=== PATIENT | female | born 1985 | race Caucasian/White ===

== ENCOUNTER 2017-06-23 18:54 | Emergency (ER) | payer MEDICAID, OTHER ==
[~2017-06-23] VITALS: Ht 172.7 cm; Wt 68.0 kg
[~2017-06-23 18:54] MED LIST: ACHD5005 PO; DOXY100C2 PO; METR500T PO; NAPR-243 PO
--- OUTSIDE RECORDS SUMMARY | 2017-06-23 19:00 | XMS REPORT ---
Author Author Christin Ramirez Organization [facility] Address [address] [place], [place] [address] Care Team Providers Care Machine Shop Supervisor Name Role Phone Christin Ramirez PCP Christin Ramirez PreferredProvider Allergies and Adverse Reactions Name Reaction Notes NO KNOWN DRUG ALLERGIES Plan of Treatment Planned Activity Comments Planned Date Planned Time Plan/Goal Complete blood count (CBC) with differential count 01/10/2017 12:00 AM Comprehensive metabolic panel 01/10/2017 12:00 AM Medications Active Name Start Date Estimated Completion Date SIG Comments aspirin 81 mg oral tablet,delayed release (DR/EC) take 1 tablet (81 mg) by oral route once daily Flovent HFA 220 mcg/actuation inhalation HFA aerosol inhaler inhale 2 puffs (440 mcg) by inhalation route 2 times per day Lopressor 100 mg oral tablet take 1 tablet (100 mg) by oral route once daily with a meal ProAir HFA 90 mcg/actuation inhalation HFA aerosol inhaler inhale 2 puffs (180 mcg) by inhalation route every 6 hours as needed albuterol sulfate 2.5 mg /3 mL (0.083 %) inhalation solution for nebulization 01/24/2017 04/24/2017 inhale 3 milliliters (2.5 mg) by nebulization route 3 times per day for 30 days Remeron 15 mg oral tablet 03/14/2017 09/10/2017 take 1 tablet (15 mg) by oral route once daily before bedtime for 30 days Wellbutrin XL 150 mg oral tablet extended release 24 hr 03/14/2017 09/10/2017 take 1 tablet (150 mg) by oral route once daily for 30 days tramadol 50 mg oral tablet 03/14/2017 04/13/2017 take 1 tablet (50 mg) by oral route every 6 hours as needed for 30 days Name Start Date Expiration Date SIG Comments nebulizer machine + supplies one kit 01/24/2017 02/23/2017 Use TID per insert instructions warfarin 5 mg oral tablet 01/24/2017 02/23/2017 take 1 tablet (5 mg) by oral route once daily for 30 days Discontinued Name Start Date Discontinued Date SIG Comments Vitamin Oral Tablet 01/10/2017 take 1 tablet by oral route once daily Roxicodone 5 mg oral tablet 02/12/2017 take 1 tablet (5 mg) by oral route every 4 hours as needed pantoprazole 40 mg oral tablet,delayed release (DR/EC) 02/12/2017 take 1 tablet (40 mg) by oral route once daily senna 8.8 mg/5 mL oral syrup 02/12/2017 take 20 milliliters by oral route 2 times a day Problem List Description Status Onset Asthma Active Vital Signs Date Time BP-Sys(mm[Hg] BP-Mayra(mm[Hg]) HR(bpm) RR(rpm) Temp WT HT HC BMI BSA BMI Percentile O2 Sat(%) 03/14/2017 11:06:00 AM 98 mmHg 76 mmHg 108 bpm 16 rpm 97.7 F 134.25 lbs 68 in 20.41 kg/m2 1.71 m2 98 % 02/12/2017 11:04:00 AM 98 mmHg 70 mmHg 77 bpm 18 rpm 98.1 F 128.5 lbs 68 in 19.5382 kg/m 1.6723 m 99 % 02/03/2017 2:55:00 PM 118 mmHg 74 mmHg 114 bpm 18 rpm 98.5 F 129.5 lbs 68 in 19.69 kg/m2 1.68 m2 99 % 01/24/2017 11:49:00 AM 122 mmHg 76 mmHg 85 bpm 18 rpm 97.7 F 127 lbs 68 in 19.3101 kg/m 1.6625 m 96 % 01/10/2017 11:10:00 AM 98 mmHg 78 mmHg 99 bpm 18 rpm 98.1 F 127.5 lbs 68 in 19.39 kg/m2 1.67 m2 95 % 12/12/2011 10:27:00 AM 132 mmHg 82 mmHg 82 bpm 137 lbs 68 in 20.8306 kg/m 1.7267 m 12/05/2011 1:50:00 PM 128 mmHg 89 mmHg 99 bpm 132 lbs 68 in 20.07 kg/m2 1.69 m2 11/21/2011 1:17:00 PM 128 mmHg 75 mmHg 65 bpm 98.1 F 130.25 lbs 11/14/2011 1:35:00 PM 123 mmHg 75 mmHg 82 bpm 97.1 F 130.25 lbs 68 in 19.80 kg/m2 1.68 m2 11/07/2011 1:22:00 PM 123 mmHg 70 mmHg 92 bpm 132 lbs 68 in 20.0703 kg/m 1.6949 m 08/22/2011 9:37:00 AM 96 mmHg 53 mmHg 70 bpm 98.1 F 123.5 lbs 68 in 18.78 kg/m2 1.64 m2 08/05/2011 2:25:00 PM 112 mmHg 64 mmHg 64 bpm 18 rpm 97.4 F 120.5 lbs 68 in 18.3218 kg/m 1.6194 m Social History Name Description Comments Tobacco Former smoker Alcohol Use - Occasional History of Procedures Date Ordered Description Order Status 08/05/2011 12:00 AM CHORIONIC GONADOTROPIN ASSAY Reviewed 08/22/2011 12:00 AM CYTOPATH C/V THIN LAYER Reviewed 08/22/2011 12:00 AM SPECIMEN HANDLING OFFICE-LAB Reviewed 08/22/2011 12:00 AM N.GONORRHOEAE DNA AMP PROB Reviewed 08/22/2011 12:00 AM CHLAMYDIA CULTURE Reviewed 08/22/2011 12:00 AM OBSTETRIC PANEL Reviewed 08/22/2011 12:00 AM HIV-1ANTIBODY Reviewed 08/22/2011 12:00 AM URINALYSIS AUTO W/SCOPE Reviewed 08/22/2011 12:00 AM TRANSVAGINAL US OBSTETRIC Reviewed 10/31/2011 12:00 AM ASSAY OF PROGESTERONE 17-D Reviewed 11/07/2011 12:00 AM THER/PROPH/DIAG INJ SC/IM Reviewed 11/07/2011 12:00 AM ASSAY OF PROGESTERONE 17-D Reviewed 11/14/2011 12:00 AM THER/PROPH/DIAG INJ SC/IM Reviewed 11/14/2011 12:00 AM ASSAY OF PROGESTERONE 17-D Reviewed 11/21/2011 12:00 AM THER/PROPH/DIAG INJ SC/IM Reviewed 11/21/2011 12:00 AM ASSAY OF PROGESTERONE 17-D Reviewed 12/12/2011 12:00 AM THER/PROPH/DIAG INJ SC/IM Reviewed 12/12/2011 12:00 AM ASSAY OF PROGESTERONE 17-D Reviewed 12/05/2011 12:00 AM THER/PROPH/DIAG INJ SC/IM Reviewed 12/05/2011 12:00 AM ASSAY OF PROGESTERONE 17-D Reviewed 02/03/2017 12:00 AM CHEST X-RAY 2VW FRONTAL&LATL Returned 02/12/2017 12:00 AM COMPLETE CBC W/AUTO DIFF WBC Returned 02/12/2017 12:00 AM COMPREHEN METABOLIC PANEL Returned 02/12/2017 12:00 AM ASSAY OF LIPASE Returned 02/12/2017 12:00 AM C-REACTIVE PROTEIN Returned 02/12/2017 12:00 AM RBC SED RATE AUTOMATED Returned 02/12/2017 12:00 AM ASSAY OF CK (CPK) Returned 02/12/2017 12:00 AM ASSAY OF TROPONIN QUANT Returned 02/12/2017 12:00 AM TTE W/DOPPLER COMPLETE Returned 02/12/2017 12:00 AM US EXAM ABDO BACK WALL RENE Returned 02/12/2017 12:00 AM ASSAY OF NATRIURETIC PEPTIDE Returned 01/24/2017 12:00 AM CHEST X-RAY 2VW FRONTAL&LATL Returned 01/24/2017 12:00 AM COMPLETE CBC W/AUTO DIFF WBC Reviewed 01/24/2017 12:00 AM C-REACTIVE PROTEIN Reviewed 01/24/2017 12:00 AM BLOOD CULTURE FOR BACTERIA Reviewed 01/24/2017 12:00 AM COMPREHEN METABOLIC PANEL Reviewed Results Summary Date and Description Results 08/05/2011 3:02 PM TEST POSITIVE 08/22/2011 11:32 AM WBC 10.0 RBC 4.71 HGB 14.10 g/dLHCT 42.80 %MCV 91.0 fLMCH 29.90 pgMCHC 32.90 g/dLRDW SD 48 RDW CV 14.40 %MPV 9.60 fLPLT 349 NRBC# 0.00 NRBC% 0.0 %NEUT 64.30 %%LYMP 23.60 %%MONO 9.10 %%EOS 2.30 %%BASO 0.70 %#NEUT 6.45 #LYMP 2.37 #MONO 0.91 #EOS 0.23 #BASO 0.07 MANUAL DIFF NOT IND COLOR YELLOW APPEARANCE CLOUDY SPEC GRAV 1.020 pH 7.5 PROTEIN NEGATIVE GLUCOSE NEGATIVE KETONE NEGATIVE BILIRUBIN NEGATIVE BLOOD NEGATIVE NITRITE NEGATIVE LEUK SCREEN NEGATIVE WBC/HPF NEGATIVE RBC/HPF NEGATIVE CASTS/LPF NEGATIVE CRYSTALS 2++ AMORPHOUS MUCOUS THRDS NEGATIVE BACTERIA FEW EPITH CELLS FEW SQUAMOUS TRICHOMONAS NEGATIVE YEAST NEGATIVE CULT ORDERED YES 01/24/2017 1:20 PM WBC 6.6 RBC 3.94 HGB 12.0 g/dLHCT 38.0 %MCV 96.0 fLMCH 30.50 pgMCHC 31.60 g/dLRDW SD 54 RDW CV 15.0 %MPV 8.50 fLPLT 373 NRBC# 0.00 NRBC % 0.0 %NEUT 65.50 %%LYMP 20.20 %%MONO 11.30 %%EOS 2.0 %%BASO 0.80 %#NEUT 4.35 # LYMP 1.34 #MONO 0.75 #EOS 0.13 #BASO 0.05 MANUAL DIFF NOT IND GLUCOSE 99.0 mg/ dLSODIUM 137.0 mmol/LPOTASSIUM 4.40 mmol/LCHLORIDE 101.0 mmol/LCO2 28.0 mmol/ LBUN 11.0 mg/dLCREATININE 0.70 mg/dLSGOT/AST 17.0 IU/LSGPT/ALT 17.0 IU/LALK PHOS 79.0 IU/LTOTAL PROTEIN 8.40 g/dLALBUMIN 3.80 g/dLTOTAL BILI 0.70 mg/ dLCALCIUM 10.20 mg/dLAGE 31 GFR NonAA 98 GFR AA 119 eGFR >60 mL/min/1.73meGFR AA* >60 C REACTIVE PROTEIN 17.0 mg/L History Of Immunizations Not available. History of Past Illness Name Date of Onset Comments Asthma Amenorrhea Aug 05 2011 2:27PM test confirmed positive Aug 22 2011 9:39AM Personal history of other diseases; other genital system and obstetric disorders; personal history of pre-term labor Oct 31 2011 3:20PM Personal history of other diseases; other genital system and obstetric disorders; personal history of pre-term labor Nov 07 2011 1:42PM Personal history of other diseases; other genital system and obstetric disorders; personal history of pre-term labor Nov 14 2011 1:45PM Personal history of other diseases; other genital system and obstetric disorders; personal history of pre-term labor Nov 21 2011 1:27PM Personal history of other diseases; other genital system and obstetric disorders; personal history of pre-term labor Dec 12 2011 10:39AM Personal history of other diseases; other genital system and obstetric disorders; personal history of pre-term labor Dec 05 2011 2:04PM Heart Failure, Systolic Jan 10 2017 11:13AM Aortic valve replaced Jan 10 2017 11:13AM Nutritional deficiency Jan 10 2017 11:13AM Vocal cord paralysis Jan 10 2017 11:13AM Dysphagia Jan 10 2017 11:13AM 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 Jan 10 2017 11:13AM Pressure ulcer of unspecified site, unspecified stage Jan 10 2017 11:13AM Heart valve replaced Jan 24 2017 11:51AM Mechanical heart valve present Jan 24 2017 11:51AM Cough Jan 24 2017 11:51AM Skin infection Jan 24 2017 11:51AM Pneumonia Jan 24 2017 2:51PM Cough Feb 03 2017 2:58PM Chest pain Feb 12 2017 11:08AM Syncope Feb 12 2017 11:08AM Nicotine Addiction Mar 14 2017 11:17AM Anxiety Mar 14 2017 11:17AM Anorexia Mar 14 2017 11:17AM Payers Insurance Name Company Name Plan Name Plan Number Policy Number Policy Group Number Start Date [employer] [place] [employer] [place] [id number] N/A [employer] [place] [employer] [place] [id number] N/A [employer] - CMFHP Cov[employer] -CMFHP [id number] N/A [employer] - RHC - CMFHP [employer] - RHC - CMFHP [id number] N/A History of Encounters Visit Date Visit Type Provider 03/14/2017 Office visit Christin Ramirez MD 02/12/2017 Office visit Christin Ramirez MD 02/09/2017 [facility] Wing Samaniego MD 02/08/2017 [facility] Wing Samaniego MD 02/03/2017 Office visit Christin Ramirez MD 01/24/2017 [facility] Matthias Thomas MD 01/24/2017 Office visit Etta Lowe AGRICULTURAL EDUCATION PROFESSOR 01/10/2017 Office visit Christin Ramirez MD 01/05/2017 [facility] Wing Samaniego MD 12/12/2011 Nurse visit Edson Dean MD 12/05/2011 Nurse visit Edson Dean MD 11/28/2011 Office visit Edson Dean MD 11/28/2011 Office visit Edson Dean MD 11/21/2011 Nurse visit Edson Dean MD 11/14/2011 Nurse visit Edson Dean MD 11/07/2011 Nurse visit Edson Dean MD 10/31/2011 Office visit Edson Dean MD 10/10/2011 Office visit Edson Daen MD 09/12/2011 Office visit Edson Dean MD 09/03/2011 [facility] Edson Dean MD 09/03/2011 [facility] Manjit Carey MD 09/03/2011 [facility] Edson Dean MD 08/22/2011 Office visit Edson Dean MD 08/05/2011 Office visit Kaylin Marx APRN
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
--- OUTSIDE RECORDS SUMMARY | 2017-06-23 19:00 | XMS REPORT ---
Author Author Christin Ramirez Organization [facility] Address [address] [place], [place] [address] Care Team Providers Care Hcc Coders Name Role Phone Christin Ramirez PCP Christin Ramirez PreferredProvider Allergies and Adverse Reactions Name Reaction Notes NO KNOWN DRUG ALLERGIES Plan of Treatment Planned Activity Comments Planned Date Planned Time Plan/Goal Complete blood count (CBC) with differential count 01/10/2017 12:00 AM Comprehensive metabolic panel 01/10/2017 12:00 AM X-ray of chest, PA and lateral views 02/03/2017 12:00 AM Medications Active Name Start Date [...] oral route once daily with a meal Roxicodone 5 mg oral tablet take 1 tablet (5 mg) by oral route every 4 hours as needed pantoprazole 40 mg oral tablet,delayed release (DR/EC) take 1 tablet ( 40 mg) by oral route once daily ProAir HFA 90 mcg/actuation inhalation HFA aerosol inhaler inhale 2 puffs (180 mcg) by inhalation route every 6 hours as needed senna 8.8 mg/5 mL oral syrup take 20 milliliters by oral route 2 times a day nebulizer machine + supplies one kit 01/24/2017 02/23/2017 Use TID per insert instructions albuterol sulfate 2.5 mg /3 mL (0.083 %) inhalation solution for nebulization 01/24/2017 04/24/2017 inhale 3 milliliters (2.5 mg) by nebulization route 3 times per day for 30 days warfarin 5 mg oral tablet 01/24/2017 02/23/2017 take 1 tablet (5 mg) by oral route once daily for 30 days tramadol 50 mg oral tablet 02/03/2017 03/05/2017 take 1 tablet (50 mg) by oral route every 6 hours as needed for 30 days Discontinued Name Start Date Discontinued Date SIG Comments Vitamin Oral Tablet 01/10/2017 take 1 tablet by oral route once daily Problem List Description Status Onset Asthma Active Vital Signs Date Time BP-Sys(mm[Hg] BP-Mayra(mm[Hg]) HR(bpm) RR(rpm) Temp WT HT HC BMI BSA BMI Percentile O2 Sat(%) 02/03/2017 2:55:00 PM 118 mmHg 74 mmHg [...] 12:00 AM ASSAY OF PROGESTERONE 17-D Reviewed 01/24/2017 12:00 AM CHEST X-RAY 2VW FRONTAL&LATL [...] 2017 11:13AM Dysphagia Jan 10 2017 11:13AM [facility] (current) use of anticoagulants Jan 10 2017 11:13AM Pressure ulcer of unspecified site, unspecified stage Jan 10 2017 11:13AM Heart valve replaced Jan 24 2017 11:51AM Mechanical heart valve present Jan 24 2017 11:51AM Cough Jan 24 2017 11:51AM Skin infection Jan 24 2017 11:51AM Pneumonia Jan 24 2017 2:51PM Cough Feb 03 2017 2:58PM Payers Insurance Name Company Name Plan Name Plan Number Policy Number Policy Group Number Start Date [employer] - [place] [employer] [place] [id number] N/A [employer] [place] [employer] [place] [id number] N/A [employer] - CMFHP Cov[employer] -CMFHP [id number] N/A [employer] - RHC - CMFHP [employer] - RHC - CMFHP [id number] N/A History of Encounters Visit Date Visit Type Provider 02/03/2017 Office visit Christin Ramirez MD 01/24/2017 [facility] Matthias Thomas MD 01/24/2017 Office visit Etta Lowe APRN 01/10/2017 Office visit Christin Ramirez MD 12/12/2011 Nurse visit Edson Dean MD 12/05/2011 Nurse visit Edson Dean MD 11/28/2011 Office visit Edson Dean MD 11/28/2011 Office visit Edson Dean MD 11/21/2011 Nurse visit Edson Dean MD 11/14/2011 Nurse visit Edson Dean MD 11/07/2011 Nurse visit Edson Dean MD 10/31/2011 Office visit Edson Dean MD 10/10/2011 Office visit Edson Dean MD 09/12/2011 Office visit Edson Dean MD 09/03/2011 [facility] Edson Dean MD 09/03/2011 [facility] Manjit Carey MD 09/03/2011 [facility] Edson Dean MD 08/22/2011 Office visit Edson Dean MD 08/05/2011 Office visit Kaylin Marx APRN
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
--- OUTSIDE RECORDS SUMMARY | 2017-06-23 19:01 | XMS REPORT ---
Author Author Christin Ramirez Organization [facility] Address [address] [place], [place] [address] Care Team Providers Care Dynamics Ax Consultant Name Role Phone Christin Ramirez PCP Christin [...] inhalation route every 6 hours as needed nebulizer machine + supplies one kit 01/24/2017 [...] HC BMI BSA BMI Percentile O2 Sat(%) 02/12/2017 11:04:00 AM 98 mmHg 70 mmHg 77 bpm 18 rpm 98.1 F 128.5 lbs 68 in 19.54 kg/m2 1.67 m2 99 % 02/03/2017 2:55:00 PM 118 mmHg 74 mmHg 114 bpm 18 rpm 98.5 F 129.5 lbs 68 in 19.6902 kg/m 1.6788 m 99 % 01/24/2017 11:49:00 AM 122 mmHg 76 mmHg 85 bpm 18 rpm 97.7 F 127 lbs 68 in 19.31 kg/m2 1.66 m2 96 % 01/10/2017 11:10:00 AM 98 mmHg 78 mmHg 99 bpm 18 rpm 98.1 F 127.5 lbs 68 in 19.3861 kg/m 1.6657 m 95 % 12/12/2011 10:27:00 AM 132 mmHg 82 mmHg 82 bpm 137 lbs 68 in 20.83 kg/m2 1.73 m2 12/05/2011 1:50:00 PM 128 mmHg 89 mmHg 99 bpm 132 lbs 68 in 20.0703 kg/m 1.6949 m 11/21/2011 1:17:00 PM 128 mmHg 75 mmHg 65 bpm 98.1 F 130.25 lbs 11/14/2011 1:35:00 PM 123 mmHg 75 mmHg 82 bpm 97.1 F 130.25 lbs 68 in 19.8042 kg/m 1.6836 m 11/07/2011 1:22:00 PM 123 mmHg 70 mmHg 92 bpm 132 lbs 68 in 20.07 kg/m2 1.69 m2 08/22/2011 9:37:00 AM 96 mmHg 53 mmHg 70 bpm 98.1 F 123.5 lbs 68 in 18.7779 kg/m 1.6394 m 08/05/2011 2:25:00 PM 112 mmHg 64 mmHg 64 bpm 18 rpm 97.4 F 120.5 lbs 68 in 18.32 kg/m2 1.62 m2 Social History Name Description Comments Tobacco Former [...] 01/24/2017 12:00 AM COMPREHEN METABOLIC PANEL Reviewed 02/03/2017 12:00 AM CHEST X-RAY 2VW [...] 12:00 AM ASSAY OF NATRIURETIC PEPTIDE Returned Results Summary Date and Description Results 08/05/2011 [...] 2017 11:13AM Dysphagia Jan 10 2017 11:13AM group home (current) use of anticoagulants Jan 10 2017 [...] 2017 11:08AM Syncope Feb 12 2017 11:08AM Payers Insurance Name Company Name Plan Name Plan Number Policy Number Policy Group Number Start Date [employer] - [place] [employer] [place] [id number] N/A [employer] [place] [employer] [place] [id number] N/A [employer] - CMFHP Cov[employer] -CMFHP [id number] N/A [employer] - RHC - CMFHP [employer] - RHC - CMFHP [id number] N/A History of Encounters Visit Date Visit Type Provider 02/12/2017 Office visit Christin Ramirez MD 02/03/2017 Office visit Christin Ramirez MD 01/24/2017 [facility] Matthias Thomas MD 01/24/2017 Office [...] 09/12/2011 Office visit Edson Dean MD 09/03/2011 [facility] Edson Dean MD 09/03/2011 [facility] Manjit Carey MD 09/03/2011 [facility] Edson Dean MD 08/22/2011 Office visit Edson Dean MD 08/05/2011 Office visit Kaylin Marx APRN
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
--- OUTSIDE RECORDS SUMMARY | 2017-06-23 19:01 | XMS REPORT ---
Author Author Christin Ramirez Organization [facility] Address [address] [place], [place] [address] Care Team Providers Care Sales Forecast Analyst Name Role Phone Christin Ramirez PCP Christin [...] 2017 11:13AM Dysphagia Jan 10 2017 11:13AM custodial (current) use of anticoagulants Jan 10 2017 [...] Plan [employer] [place] [id number] N/[place] [employer] [place] [employer] [place] [id number] N/A [employer] - CMFHP [employer] -CMFHP [id number] N/A [employer] - RHC - CMFHP [employer] - RHC - CMFHP [id number] N/A History of Encounters Visit Date Visit Type Provider 02/12/2017 Office visit Christin Ramirez MD 02/03/2017 Office visit Christin Ramirez MD 01/24/2017 [facility] Matthias Thomas MD 01/24/2017 Office visit Etta Lowe APRN 01/10/2017 Office visit Christin Ramirez MD 12/12/2011 Nurse visit Edson Dean MD 12/05/2011 Nurse visit Edson Dean MD 11/28/2011 Office visit Edson Dean MD 11/28/2011 Office visit Edson Dean MD 11/21/2011 Nurse visit Edson Dean MD 11/14/2011 Nurse visit Edson Dean MD 11/07/2011 Nurse visit Edson Dean MD 10/31/2011 Office visit Edsno Dean MD 10/10/2011 Office visit Edson Dean MD 09/12/2011 Office visit Edson Dean MD 09/03/2011 [facility] Edson Dean MD 09/03/2011 [facility] Manjit Carey MD 09/03/2011 [facility] Edson Dean MD 08/22/2011 Office visit Edson Dean MD 08/05/2011 Office visit Kaylin Marx APRN
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
--- OUTSIDE RECORDS SUMMARY | 2017-06-23 19:02 | XMS REPORT ---
Author Author Christin Ramirez Organization [facility] Address [address] [place], [place] [id number] Care Team Providers Care Manager Heavy Equipment Name Role Phone Christin Ramirez PCP Christin [...] by oral route 2 times a day warfarin 6 mg oral tablet take 1 tablet (6 mg) by oral route once daily , on Friday she takes 8mg Discontinued Name Start Date Discontinued Date SIG Comments Vitamin Oral Tablet 01/10/2017 take 1 tablet by oral route once daily Problem List Description Status Onset Asthma Active Vital Signs Date Time BP-Sys(mm[Hg] BP-Mayra(mm[Hg]) HR(bpm) RR(rpm) Temp WT HT HC BMI BSA BMI Percentile O2 Sat(%) 01/10/2017 11:10:00 AM 98 mmHg 78 mmHg [...] bpm 132 lbs 68 in 20.07 kg/m2 1.6949 m 08/22/2011 9:37:00 AM 96 mmHg 53 mmHg 70 bpm 98.1 F 123.5 lbs 68 in 18.7779 kg/m 1.64 m2 08/05/2011 2:25:00 PM 112 mmHg 64 mmHg 64 bpm 18 rpm 97.4 F 120.5 lbs 68 in 18.32 kg/m2 1.6194 m Social History Name Description Comments [...] 12:00 AM ASSAY OF PROGESTERONE 17-D Reviewed Results Summary Date and Description Results [...] TRICHOMONAS NEGATIVE YEAST NEGATIVE CULT ORDERED YES History Of Immunizations Not available. 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 Jan 10 2017 11:13AM Pressure ulcer of unspecified site, unspecified stage Jan 10 2017 11:13AM Payers Insurance Name Company Name Plan Name Plan Number Policy Number Policy Group Number Start Date [employer] - [place] [employer] [place] [id number] N/A [employer] - CMFHP [employer] -CMFHP [id number] N/A [employer] - RHC - CMFHP [employer] - RHC - CMFHP [id number] N/A History of Encounters Visit Date Visit Type Provider 01/10/2017 Office visit Christin Ramirez MD 12/12/2011 [...] 09/12/2011 Office visit Edson Dean MD 09/03/2011 [facility] Edson Dean MD 09/03/2011 [facility] Manjit Carey MD 09/03/2011 [facility] Edson Dean MD 08/22/2011 Office visit Edson Dean MD 08/05/2011 Office visit Kaylin Marx APRN
--- OUTSIDE RECORDS SUMMARY | 2017-06-23 19:02 | XMS REPORT ---
Author Author Christin Ramirez Organization [facility] Address [address] [place], [place] [id number] Care Team Providers Care Laundry Manager Name Role Phone Christin Ramirez PCP Christin [...] 3 times per day for 30 days Name Start Date Expiration [...] 2017 11:13AM Dysphagia Jan 10 2017 11:13AM nursing home (current) use of anticoagulants Jan 10 [...] Plan [employer] [place] [id number] N/A [employer] [place] [employer] [place] [id number] N/A [employer] - CMFHP [employer] -CMFHP [id number] N/A [employer] - RHC - CMFHP [employer] - [place]HC - CMFHP [id number] N/A History of Encounters Visit Date Visit Type Provider 02/12/2017 Office visit Christin Ramirez MD 02/03/2017 Office visit Christin Ramirez MD 01/24/2017 [facility] Matthias Thomas MD 01/24/2017 Office visit Etta Lowe APRN 01/10/2017 Office visit Christin Ramirez MD 01/05/2017 [facility] Wing Samaniego MD 12/12/2011 Nurse visit [...] 09/12/2011 Office visit Edson Dean MD 09/03/2011 [facility] Edson Dean MD 09/03/2011 [facility] Manjit Carey MD 09/03/2011 [facility] Edson Dean MD 08/22/2011 Office visit Edson Dean MD 08/05/2011 Office visit Kaylin Marx APRN
--- NOTE | 2017-06-23 19:04 | ED Chest Pain ---
General Stated Complaint: CHEST PAIN Source: patient Exam Limitations: no limitations History of Present Illness Date Seen by Provider: Jun 23, 2017 Time Seen by Provider: 19:02 Initial Comments To ER with reports of central chest pain sharp in nature that started 3 hours ago while standing in the kitchen stove cooking osorio. She does have associated shortness of breath. Certain movements make the pain worse. She did have open aortic valve replacement at the [facility] in November for "leaky valve". She is on warfarin. She states that her INR was low last week since she has been giving herself Lovenox injections. She states that the bumps in the car worsened her chest pain on the way here. Severity/Quality: moderate, sharp Location: central Radiation: no radiation Activities at Onset: none ASA po MAGNET PLACER: No NTG SL MAGNET PLACER: No Allergies and Home Medications Allergies Coded Allergies: No Known Drug Allergies (Unverified , 06/18/11) Home Medications Cephalexin 500 Mg Capsule, 500 MG PO TID Prescribed by: SAHIL MCMAHON on 06/23/172037 Patient Home Medication List Home Medication List Reviewed: Yes Review of Systems Constitutional: see HPI EENTM: No Symptoms Reported Respiratory: See HPI, Shortness of Air Cardiovascular: No Symptoms Reported Gastrointestinal: No Symptoms Reported Musculoskeletal: no symptoms reported Skin: no symptoms reported Psychiatric/Neurological: No Symptoms Reported Endocrine: No Symptoms Reported Past Skcentm-Fabsbr-Rnlsrk Hx Patient Social History Recent Foreign Travel: No Contact w/Someone Who Travel: No Physical Exam Vital Signs Vital Signs - First Documented 06/23/17 18:56 Temp 97.8 Pulse 86 Resp 17 B/P (MAP) 136/78 (97) Pulse Ox 98 O2 Delivery Room Air Capillary Refill : General Appearance: No Apparent Distress, WD/WN, Anxious HEENT: PERRL/EOMI, TMs Normal Neck: Full Range of Motion, Normal Inspection Respiratory: No Accessory Muscle Use, No Respiratory Distress Cardiovascular: Regular Rate, Rhythm, Normal Peripheral Pulses Gastrointestinal: Normal Bowel Sounds, Non Tender, Soft Extremity: Normal Capillary Refill, Normal Inspection Neurologic/Psychiatric: Alert, Oriented x3, No Motor/Sensory Deficits Skin: Normal Color, Warm/Dry Progress/Results/Core Measures Results/Orders Lab Results Laboratory Tests Test 06/23/17 19:05 06/23/17 19:50 Range/Units White Blood Count 7.2 4.3-11.0 10^3/uL Red Blood Count 4.41 4.35-5.85 10^6/uL Hemoglobin 12.8 11.5-16.0 G/DL Hematocrit 39 35-52 % Mean Corpuscular Volume 89 80-99 FL Mean Corpuscular Hemoglobin 29 25-34 PG Mean Corpuscular Hemoglobin Concent 33 32-36 G/DL Red Cell Distribution Width 14.1 10.0-14.5 % Platelet Count 427 H 130-400 10^3/uL Mean Platelet Volume 9.1 7.4-10.4 FL Neutrophils (%) (Auto) 67 42-75 % Lymphocytes (%) (Auto) 21 12-44 % Monocytes (%) (Auto) 10 0-12 % Eosinophils (%) (Auto) 2 0-10 % Basophils (%) (Auto) 1 0-10 % Neutrophils # (Auto) 4.8 1.8-7.8 X 10^3 Lymphocytes # (Auto) 1.5 1.0-4.0 X 10^3 Monocytes # (Auto) 0.7 0.0-1.0 X 10^3 Eosinophils # (Auto) 0.1 0.0-0.3 10^3/uL Basophils # (Auto) 0.1 0.0-0.1 10^3/uL Prothrombin Time 27.1 H 12.2-14.7 SEC INR Comment 2.5 H 0.8-1.4 Activated Partial Thromboplast Time 38 H 24-35 SEC D-Dimer < 0.27 0.00-0.49 UG/ML Sodium Level 137 135-145 MMOL/L Potassium Level 3.9 3.6-5.0 MMOL/L Chloride Level 104 98-107 MMOL/L Carbon Dioxide Level 25 21-32 MMOL/L Anion Gap 8 5-14 MMOL/L Blood Urea Nitrogen 15 7-18 MG/DL Creatinine 1.01 0.60-1.30 MG/DL Estimat Glomerular Filtration Rate > 60 BUN/Creatinine Ratio 15 Glucose Level 128 H 70-105 MG/DL Calcium Level 9.6 8.5-10.1 MG/DL Magnesium Level 2.2 1.8-2.4 MG/DL Total Bilirubin 0.3 0.1-1.0 MG/DL Aspartate Amino Transf (AST/SGOT) 18 5-34 U/L Alanine Aminotransferase (ALT/SGPT) 27 0-55 U/L Alkaline Phosphatase 79 40-136 U/L Myoglobin 17.5 10.0-92.0 NG/ML Troponin I < 0.30 <0.30 NG/ML B-Type Natriuretic Peptide 56.6 <100.0 PG/ML Total Protein 8.3 H 6.4-8.2 GM/DL Albumin 4.5 3.2-4.5 GM/DL Serum Test, Qualitative NEGATIVE NEGATIVE Urine Color YELLOW Urine Clarity CLEAR Urine pH 6 5-9 Urine Specific [place] 1.020 1.016-1.022 Urine Protein 1+ H NEGATIVE Urine Glucose (UA) NEGATIVE NEGATIVE Urine Ketones 1+ H NEGATIVE Urine Nitrite NEGATIVE NEGATIVE Urine Bilirubin NEGATIVE NEGATIVE Urine Urobilinogen 1 NORMAL MG/DL Urine Leukocyte Esterase 1+ H NEGATIVE Urine RBC (Auto) 2+ H NEGATIVE Urine RBC 2-5 H /HPF Urine WBC 25-50 H /HPF Urine Squamous Epithelial Cells 25-50 H /HPF Urine Crystals NONE /LPF Urine Bacteria LARGE H /HPF Urine Casts NONE /LPF Urine Mucus NEGATIVE /LPF Urine Culture Indicated YES Urine Opiates Screen NEGATIVE NEGATIVE Urine Oxycodone Screen NEGATIVE NEGATIVE Urine Methadone Screen NEGATIVE NEGATIVE Urine Propoxyphene Screen NEGATIVE NEGATIVE Urine Barbiturates Screen NEGATIVE NEGATIVE Ur Tricyclic Antidepressants Screen NEGATIVE NEGATIVE Urine Phencyclidine Screen NEGATIVE NEGATIVE Urine Amphetamines Screen NEGATIVE NEGATIVE Urine Methamphetamines Screen NEGATIVE NEGATIVE Urine Benzodiazepines Screen POSITIVE H NEGATIVE Urine Cocaine Screen NEGATIVE NEGATIVE Urine Cannabinoids Screen NEGATIVE NEGATIVE My Orders Orders - SAHIL MCMAHON APRN Cbc With Automated Diff (06/23/17 19:00) Magnesium (06/23/17 19:00) Chest 1 View, Ap/Pa Only (06/23/17 19:00) Ekg Tracing (06/23/17 19:00) Cardiac Profile 1 (06/23/17 19:00) Comprehensive Metabolic Panel (06/23/17 19:00) Myoglobin Serum (06/23/17 19:00) Protime With Inr (06/23/17 19:00) Partial Thromboplastin Time (06/23/17 19:00) O2 (06/23/17 19:00) Monitor-Rhythm Ecg Trace Only (06/23/17 19:00) Lipid Panel (06/24/17 06:00) Saline Lock/Iv-Start (06/23/17 19:00) BNP (06/23/17 19:00) Fibrin Degradation Products (06/23/17 19:00) Ketorolac Injection (Toradol Injection) (06/23/17 19:15) Ua Culture If Indicated (06/23/17 19:18) Drug Screen Stat (Urine) (06/23/17 19:18) Hcg,Qualitative Serum (06/23/17 19:18) Urine Culture (06/23/17 19:50) Cephalexin Capsule (Keflex Capsule) (06/23/17 20:45) Medications Given in ED Current Medications Medications Dose Ordered Sig/Rupa Route Start Time Stop Time Status Last Admin Dose Admin Ketorolac Tromethamine 30 mg ONCE ONCE IVP 06/23/17 19:15 06/23/17 19:16 DC 06/23/17 19:53 30 MG Vital Signs/I&O Vital Sign - Last 12Hours 06/23/17 18:56 Temp 97.8 Pulse 86 Resp 17 B/P (MAP) 136/78 (97) Pulse Ox 98 O2 Delivery Room Air Progress Note : Progress Note NAME: HARRELLMILLA ARROYO Ana MED REC#: [id number] PT STATUS: REG ER : 1985 PHYSICIAN: SAHIL MCMAHON APRN ADMIT DATE: 06/23/17/ER Draft Date of Exam:06/23/17 CHEST 1 VIEW, AP/PA ONLY INDICATION: Chest pain with shortness of breath. FINDINGS: Portable chest. The lungs are well-aerated. There is mild interstitial prominence especially in the lower lobes. No consolidated infiltrates are present. The heart is upper limits of normal. Median sternotomy changes are present. The upper lungs are clear with no evidence of pulmonary edema. No pneumothorax or pleural effusions. IMPRESSION: 1. Interstitial infiltrate present in the lung bases. This may be an acute or chronic finding. This is more prominent on the right. 2. Postoperative residue with mild cardiomegaly. No evidence of congestive failure. Dictated on workstation # [id number] Dict: 06/23/171928 Trans: 06/23/17 193 SHON [id number] Interpreted by: NIDIA GARCIA MD Electronically signed by: Departure Communication (Admissions) Progress Notes Records reviewed from cardiothoracic surgery at [facility]. Note from October 2016 mentions that she determined to have a severely regurgitant aortic valve. Symptoms of this began in June 2016 which were fatigue and worsening shortness of breath. She did mention a history of substance abuse including methamphetamines up until 2014 as well as prescription pain pills and cigarette smoking. She had an echocardiogram that showed left ventricular ejection fraction 45% with mildly impaired global left ventricular function mildly dilated aortic root and proximal ascending aorta no pericardial effusion with a bicuspid and severely regurgitant aortic valve. Postoperative diagnosis was [place] Heart Association class III systolic heart failure with aortic valve replacement with a 21 mm on next valve. Aortic annular enlargement with a bovine pericardial patch and December 152016 she was sent back to surgery for cardiac tamponade on. She had mediastinal exploration and washout with evacuation of hematoma. 2031- patient denies any improvement in her pain. Discussed her normal labs with her. She states that she does have follow-up set up tomorrow with her oyster culler in [place]. Clinically she does not have any sign of An odd as there is no muffled heart sounds, her blood pressure is adequate at 136/78, she is not tachycardic there is no distention of jugular veins. Impression Impression: Primary Impression: Urinary tract infection Additional Impression: Chest pain Disposition: 01 HOME, SELF-CARE Condition: Stable Departure-Patient Inst. Decision time for Depature: 20:25 Referrals: NO,LOCAL PHYSICIAN (PCP/Family) Primary Care Physician Patient Instructions: Chest Pain (DC) Add. Discharge Instructions: 1. Return to ER for any worsening pain or shortness of breath 2. It is imperative that she keep her appointment with cardiology tomorrow Scripts Cephalexin (Keflex) 500 Mg Capsule 500 MG PO TID, #15 CAP Prov: SAHIL MCMAHON FORENSIC MATERIALS ENGINEER 06/23/17 SAHIL MCMAHON FORENSIC MATERIALS ENGINEER Jun 23, 2017 19:04
[2017-06-23 19:15] LABS: BASOPHILS # (AUTO) 0.1 10^3/uL (0.0-0.1); BASOPHILS % (AUTO) 1 % (0-10); EOSINOPHILS # (AUTO) 0.1 10^3/uL (0.0-0.3); EOSINOPHILS % (AUTO) 2 % (0-10); HEMATOCRIT 39 % (35-52); HEMOGLOBIN 12.8 G/DL (11.5-16.0); LYMPHOCYTES # (AUTO) 1.5 X 10^3 (1.0-4.0); LYMPHOCYTES % (AUTO) 21 % (12-44); MEAN CORPUSCULAR HEMOGLOBIN 29 PG (25-34); MEAN CORPUSCULAR HGB CONC 33 G/DL (32-36); MEAN CORPUSCULAR VOLUME 89 FL (80-99); MEAN PLATELET VOLUME 9.1 FL (7.4-10.4); MONOCYTES # (AUTO) 0.7 X 10^3 (0.0-1.0); MONOCYTES % (AUTO) 10 % (0-12); NEUTROPHILS # (AUTO) 4.8 X 10^3 (1.8-7.8); NEUTROPHILS % (AUTO) 67 % (42-75); PLATELET COUNT 427 10^3/uL (130-400); RED BLOOD COUNT 4.41 10^6/uL (4.35-5.85); RED CELL DISTRIBUTION WIDTH 14.1 % (10.0-14.5); WHITE BLOOD COUNT 7.2 10^3/uL (4.3-11.0)
[2017-06-23] MEDS ORDERED: KETOROLAC 30 MG/ML VIAL IVP ONE (19:15)
[2017-06-23] MEDS ORDERED: METO50TA15 (19:20)
[2017-06-23] MEDS ORDERED: WARF-48 (19:20)
[2017-06-23] MEDS ORDERED: ENOX60DI7 (19:20)
[2017-06-23] MEDS ORDERED: TRAM50TA2 (19:20)
[2017-06-23] MEDS ORDERED: MIRT15TA6 (19:20)
[2017-06-23] MEDS ORDERED: GABA-488 (19:20)
[2017-06-23] MEDS ORDERED: BUPR300T51 (19:20)
[2017-06-23] MEDS ORDERED: TEMA15CA (19:20)
[2017-06-23 19:26] LABS: INR 2.5 (0.8-1.4); PROTHROMBIN TIME PATIENT 27.1 SEC (12.2-14.7)
[2017-06-23 19:34] LABS: ALANINE AMINOTRANSFERASE 27 U/L (0-55); ALBUMIN 4.5 GM/DL (3.2-4.5); ALKALINE PHOSPHATASE 79 U/L (40-136); BILIRUBIN,TOTAL 0.3 MG/DL (0.1-1.0); BUN/CREATININE RATIO 15; CALCIUM 9.6 MG/DL (8.5-10.1); CARBON DIOXIDE 25 MMOL/L (21-32); CHLORIDE 104 MMOL/L (98-107); CREATININE SERUM 1.01 MG/DL (0.60-1.30); GFR ESTIMATED > 60; GLUCOSE 128 MG/DL (70-105); MAGNESIUM 2.2 MG/DL (1.8-2.4); POTASSIUM 3.9 MMOL/L (3.6-5.0); SODIUM 137 MMOL/L (135-145); TOTAL PROTEIN 8.3 GM/DL (6.4-8.2)
--- NOTE | 2017-06-23 19:34 | Diagnostic Imaging Report ---
INDICATION: Chest pain with shortness of breath. FINDINGS: Portable chest. The lungs are well-aerated. There is mild interstitial prominence especially in the lower lobes. No consolidated infiltrates are present. The heart is upper limits of normal. Median sternotomy changes are present. The upper lungs are clear with no evidence of pulmonary edema. No pneumothorax or pleural effusions. IMPRESSION: 1. Interstitial infiltrate present in the lung bases. This may be an acute or chronic finding. This is more prominent on the right. 2. Postoperative residue with mild cardiomegaly. No evidence of congestive failure. Dictated by: Dictated on workstation # [id number]
[2017-06-23 19:41] LABS: MYOGLOBIN SERUM 17.5 NG/ML (10.0-92.0)
[2017-06-23 19:58] LABS: BILIRUBIN,URINE NEGATIVE (NEGATIVE); CLARITY,URINE CLEAR; COLOR,URINE YELLOW; GLUCOSE, URINE (UA) NEGATIVE (NEGATIVE); KETONES,URINE 1+ (NEGATIVE); LEUKOCYTE ESTERASE ,URINE 1+ (NEGATIVE); NITRITE,URINE NEGATIVE (NEGATIVE); PH,URINE 6 (5-9); PROTEIN,URINE 1+ (NEGATIVE); UROBILINOGEN,URINE 1 MG/DL (NORMAL)
[2017-06-23 20:09] LABS: AMPHETAMINE SCREEN, URINE NEGATIVE (NEGATIVE); BARBITURATE SCREEN URINE NEGATIVE (NEGATIVE); BENZODIAZEPINES SCREEN URINE POSITIVE (NEGATIVE); CANNABINOID SCREEN, URINE NEGATIVE (NEGATIVE); COCAINE SCREEN URINE NEGATIVE (NEGATIVE); METHADONE STAT NEGATIVE (NEGATIVE); METHAMPHETAMINE SCREEN URINE S NEGATIVE (NEGATIVE); OPIATE SCREEN URINE NEGATIVE (NEGATIVE); OXYCODONE STAT NEGATIVE (NEGATIVE); PROPOXYPHENE STAT NEGATIVE (NEGATIVE); TRICYCLIC ANTIDEPRESSANTS SCRE NEGATIVE (NEGATIVE)
[2017-06-23 20:17] LABS: BACTERIA,URINE LARGE /HPF; WBC,URINE 25-50 /HPF
[2017-06-23 20:18] LABS: SQUAMOUS EPITHELIAL CELL,UR 25-50 /HPF
[2017-06-23] MEDS ORDERED: CEPH-507 PO (20:38)
[2017-06-23 20:43] VITALS: BP 130/70
[2017-06-23] MEDS ORDERED: CEPHALEXIN 250 MG (KEFLEX) CAP PO ONE (20:45)
== END 2017-06-23 20:43 | disposition home or self-care (01) ==
LOC: EDUNIT# 18:54 → ER 18:56
DX: N39.0 Urinary tract infection, site not specified (principal); R07.89 Other chest pain; Z95.2 Presence of prosthetic heart valve; Z79.01 Long term (current) use of anticoagulants
CPT/HCPCS: 36415; 71045; 80053; 80306; 81000; 83735; 83874; 83880; 84484; 84703; 85025; 85379; 85610; 85730; 87088; 87186; 93005; 93041; 96374

== ENCOUNTER 2018-10-29 15:08 | Emergency (ER) | payer SELFPAY ==
[~2018-10-29] VITALS: Ht 175.3 cm; Wt 54.4 kg
[~2018-10-29 15:08] MED LIST changes: +BUPR300T51; +CEPH-507 PO; +ENOX60DI7; +GABA-488; +METO50TA15; +MIRT15TA6; +TEMA15CA; +TRAM50TA2; +WARF-48
[2018-10-29 15:27] LABS: BASOPHILS # (AUTO) 0.1 10^3/uL (0.0-0.1); BASOPHILS % (AUTO) 0 % (0-10); EOSINOPHILS # (AUTO) 0.1 10^3/uL (0.0-0.3); EOSINOPHILS % (AUTO) 1 % (0-10); HEMATOCRIT 41 % (35-52); HEMOGLOBIN 13.4 G/DL (11.5-16.0); LYMPHOCYTES # (AUTO) 1.1 X 10^3 (1.0-4.0); LYMPHOCYTES % (AUTO) 9 % (12-44); MEAN CORPUSCULAR HEMOGLOBIN 29 PG (25-34); MEAN CORPUSCULAR HGB CONC 33 G/DL (32-36); MEAN CORPUSCULAR VOLUME 89 FL (80-99); MONOCYTES # (AUTO) 0.8 X 10^3 (0.0-1.0); MONOCYTES % (AUTO) 7 % (0-12); NEUTROPHILS # (AUTO) 9.4 X 10^3 (1.8-7.8); NEUTROPHILS % (AUTO) 82 % (42-75); PLATELET COUNT 316 10^3/uL (130-400); RED CELL DISTRIBUTION WIDTH 14.9 % (10.0-14.5); WHITE BLOOD COUNT 11.4 10^3/uL (4.3-11.0)
[2018-10-29 15:36] LABS: PROTHROMBIN TIME PATIENT 13.3 SEC (12.2-14.7)
[2018-10-29 15:45] LABS: ALANINE AMINOTRANSFERASE 19 U/L (0-55); ALBUMIN 4.1 GM/DL (3.2-4.5); ALKALINE PHOSPHATASE 70 U/L (40-136); BILIRUBIN,TOTAL 0.7 MG/DL (0.1-1.0); BUN/CREATININE RATIO 11; CALCIUM 9.5 MG/DL (8.5-10.1); CARBON DIOXIDE 27 MMOL/L (21-32); CHLORIDE 106 MMOL/L (98-107); CREATININE SERUM 0.93 MG/DL (0.60-1.30); GFR ESTIMATED > 60; GLUCOSE 98 MG/DL (70-105); POTASSIUM 3.5 MMOL/L (3.6-5.0); SODIUM 139 MMOL/L (135-145); TOTAL PROTEIN 7.3 GM/DL (6.4-8.2)
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
[2018-10-29] MEDS ORDERED: KETOROLAC 30 MG/ML VIAL IVP ONE (16:15)
[2018-10-29 16:33] VITALS: BP 145/87
--- OUTSIDE RECORDS SUMMARY | 2018-10-30 00:36 | XMS REPORT ---
Discharge Summary 2.1 Created on: MILLA HARRELL : 1985 Sex: Female Author Author DAX CAN Organization Unknown Address [address] [place], [place] [id number] Care Team Providers Care Clinical Leader Name Role Phone SADIE COLIN Watchlist DAYANA SANTANARS Watchlist TAMIKO LINCOLN DEISY Xwatchlist CINTHIA CAIO Xwatchlist NICK SHUE Xwatchlist RACHEL WILLARD Xwatchlist TAMARA JOSEPHERS Xwatchlist SUNSHINE HARTMAN Xwatchlist МАРИЯ GILBERT Xwatchlist DELORES DARNELL Xwatchlist RICHELE CORDOBA Xwatchlist NIKOTA JURGENSEN Xwatchlist MIRANDA LORENA Xwatchlist ROGER MCCORD Attending KIMBERLEY BHAKTA MD [facility] RADHA OLIVEIRA MD Xhosplist Functional Status No Data Found Immunization Immunization Date Status Additional Notes Code Code System DTP 07/10/1989 Completed 01 CVX DTP 10/21/1989 Completed CVX DTP 07/10/1989 Completed CVX DTP 10/21/1989 Completed CVX OPV 07/10/1989 Completed CVX OPV 10/21/1989 Completed CVX OPV 07/10/1989 Completed CVX OPV 10/21/1989 Completed CVX MMR 10/21/1989 Completed 03 CVX MMR 10/21/1989 Completed 03 CVX Td (adult), 2 Lf tetanus toxoid, preservative free, adsorbed 06/05/2005 Completed 09 CVX Td (adult), 2 Lf tetanus toxoid, preservative free, adsorbed 06/05/2005 Completed 09 CVX influenza, split (incl. purified surface antigen) 02/25/2003 Completed 15 CVX influenza, split (incl. purified surface antigen) 02/25/2003 Completed 15 CVX Influenza, seasonal, injectable, preservative free 01/14/2012 Completed 140 CVX Influenza, seasonal, injectable, preservative free 01/14/2012 Completed 140 CVX Mental Status No Data Found Results PROTIME - Collect Date/Time: 01/27/2017 06:15 [facility] [employer] ID: [id number] [address], [place], [place], [id number] [employer] ID: [id number] [address], [place], [place], [address] LOINC: 69169-4 Test Value Unit Reference Range Code Code System PROTIME 25.9 SEC L=9.9 H=11.9 5964-2 LOINC INR 2.3 16320-9 LOINC MAGNESIUM - Collect Date/Time: 01/27/2017 06:15 [employer] ID: [id number] [address], [place], [place], [id number] [facility] [employer] ID: [id number] [address], [id number] LOINC: 30699-1 Test Value Unit Reference Range Code Code System MAGNESIUM 1.7 MG/DL L=1.7 H=2.8 08809-1 LOINC RENAL FUNCTION PANEL - Collect Date/Time: 01/27/2017 06:15 [facility] [employer] ID: [id number] [address], [place], [place], [address] [employer] ID: [id number] [address], [place], [id number] LOINC: 22670-7 Test Value Unit Reference Range Code Code System GLUCOSE 84 MG/DL L=70 H=100 2345-7 LOINC SODIUM 137 MEQ/L L=135 H=148 2951-2 LOINC POTASSIUM 4.0 MEQ/L L=3.5 H=5.3 2823-3 LOINC CHLORIDE 104 MEQ/L L=96 H=110 2075-0 LOINC CO2 26 MEQ/L L=22 H=29 2028-9 LOINC BUN 8 MG/DL L=8 H=22 3094-0 LOINC CREATININE 0.6 MG/DL L=0.6 H=1.6 2160-0 LOINC ALBUMIN 3.2 G/DL L=3.1 H=5.4 1751-7 LOINC CALCIUM 9.8 MG/DL L=8.2 H=10.6 67891-8 LOINC PHOSPHORUS 3.3 MG/DL L=2.5 H=4.5 2777-1 LOINC AGE 31 yrs GFR NonAA 117 GFR AA 142 eGFR >60 eGFR AA* >60 CBC W/ AUTO DIFF (RFLX MAN DIFF IF IND) - Collect Date/Time: 01/27/2017 06:15 [facility] [employer] Links ID: [id number] [address], [id number] [facility] ID: [id number] [address], [place], [address] LOINC: 95240-0 Test Value Unit Reference Range Code Code System WBC 5.8 TH/CMM L=4.5 H=10.8 20533-8 LOINC RBC 3.43 ML/CMM L=4.20 H=5.40 789-8 LOINC HGB 10.2 G/DL L=12.0 H=16.0 718-7 LOINC HCT 32.9 % L=37.0 H=47.0 4544-3 LOINC MCV 96 FL L=81 H=99 MCH 29.7 PG L=27.0 H=33.0 MCHC 31.0 G/DL L=31.0 H=36.0 RDW SD 52 FL L=36 H=50 RDW CV 14.6 % L=0.0 H=14.8 MPV 9.1 FL L=9.3 H=12.5 PLT 366 TH/CMM L=130 H=440 777-3 LOINC NRBC# 0.00 TH/CMM L=0.00 H=0.00 NRBC% 0.0 /100WBC L=0.0 H=2.0 %NEUT 59.3 % %LYMP 23.0 % %MONO 13.0 % %EOS 3.6 % %BASO 0.9 % #NEUT 3.46 TH/CMM L=2.10 H=8.20 #LYMP 1.34 TH/CMM L=0.90 H=5.20 #MONO 0.76 TH/CMM L=0.16 H=1.00 #EOS 0.21 TH/CMM L=0.00 H=0.80 #BASO 0.05 TH/CMM L=0.00 H=0.20 MANUAL DIFF NOT IND VANCOMYCIN TROUGH - Collect Date/Time: 01/26/2017 01:25 [employer] ID: [id number] [address], [place], [place], [id number] [facility] [employer] ID: [id number] [address], [place], [place], [address] LOINC: 4092-3 Test Value Unit Reference Range Code Code System VANC TROUGH 19.0 UG/ML L=10.0 H=20.0 4092-3 LOINC MAGNESIUM - Collect Date/Time: 01/26/2017 01:25 [facility] [employer] ID: [id number] [address], [place], [place], [id number] [employer] ID: [id number] [address], [place], [place], [address] LOINC: 99917-5 Test Value Unit Reference Range Code Code System MAGNESIUM 1.7 MG/DL L=1.7 H=2.8 36742-5 [facility] RENAL [facility]CTION PAN[facility] - Collect Date/Time: 01/26/2017 01:25 [employer] ID: [id number] [address], [place], [place], [id number] [facility] ID: [id number] [address], [place], [place], [address] LOINC: 43610-8 Test Value Unit Reference Range Code Code System GLUCOSE 95 MG/DL L=70 H=100 2345-7 LOINC SODIUM 137 MEQ/L L=135 H=148 2951-2 LOINC POTASSIUM 4.2 MEQ/L L=3.5 H=5.3 2823-3 LOINC CHLORIDE 104 MEQ/L L=96 H=110 2075-0 LOINC CO2 26 MEQ/L L=22 H=29 2028-9 LOINC BUN 7 MG/DL L=8 H=22 3094-0 LOINC CREATININE 0.5 MG/DL L=0.6 H=1.6 2160-0 LOINC ALBUMIN 3.1 G/DL L=3.1 H=5.4 1751-7 LOINC CALCIUM 9.4 MG/DL L=8.2 H=10.6 43613-6 LOINC PHOSPHORUS 4.1 MG/DL L=2.5 H=4.5 2777-1 LOINC AGE 31 yrs GFR NonAA 145 GFR AA 176 eGFR >60 eGFR AA* >60 CBC W/ AUTO DIFF (RFLX MAN DIFF IF IND) - Collect Date/Time: 01/26/2017 01:25 [employer] ID: [id number] [address], [place], [place], [id number] [facility] ID: [id number] [address], [place], [id number] LOINC: 30043-0 Test Value Unit Reference Range Code Code System WBC 5.7 TH/CMM L=4.5 H=10.8 07484-7 LOINC RBC 3.31 ML/CMM L=4.20 H=5.40 789-8 LOINC HGB 10.0 G/DL L=12.0 H=16.0 718-7 LOINC HCT 32.0 % L=37.0 H=47.0 4544-3 LOINC MCV 97 FL L=81 H=99 MCH 30.2 PG L=27.0 H=33.0 MCHC 31.3 G/DL L=31.0 H=36.0 RDW SD 54 FL L=36 H=50 RDW CV 15.0 % L=0.0 H=14.8 MPV 9.1 FL L=9.3 H=12.5 PLT 351 TH/CMM L=130 H=440 777-3 LOINC NRBC# 0.00 TH/CMM L=0.00 H=0.00 NRBC% 0.0 /100WBC L=0.0 H=2.0 %NEUT 61.7 % %LYMP 21.2 % %MONO 12.7 % %EOS 3.5 % %BASO 0.5 % #NEUT 3.48 TH/CMM L=2.10 H=8.20 #LYMP 1.20 TH/CMM L=0.90 H=5.20 #MONO 0.72 TH/CMM L=0.16 H=1.00 #EOS 0.20 TH/CMM L=0.00 H=0.80 #BASO 0.03 TH/CMM L=0.00 H=0.20 MANUAL DIFF NOT IND CBC W/ MANUAL DIFF - Collect Date/Time: 01/25/2017 06:35 [facility] PUBLIC HEALTH INSPECTOR [facility] ID: [id number] [address], [place], [id number] [facility] ID: [id number] [address], [place], [address] LOINC: 19828-7 Test Value Unit Reference Range Code Code System WBC 6.3 TH/CMM L=4.5 H=10.8 98402-3 LOINC RBC 3.55 ML/CMM L=4.20 H=5.40 789-8 LOINC HGB 10.8 G/DL L=12.0 H=16.0 718-7 LOINC HCT 34.6 % L=37.0 H=47.0 4544-3 LOINC MCV 98 FL L=81 H=99 MCH 30.4 PG L=27.0 H=33.0 MCHC 31.2 G/DL L=31.0 H=36.0 RDW SD 54 FL L=36 H=50 RDW CV 15.0 % L=0.0 H=14.8 MPV 8.7 FL L=9.3 H=12.5 PLT 318 TH/CMM L=130 H=440 777-3 LOINC NRBC# 0.00 TH/CMM L=0.00 H=0.00 NRBC% 0.0 /100WBC L=0.0 H=2.0 %NEUT 65.2 % %LYMP 18.7 % %MONO 12.8 % %EOS 2.5 % %BASO 0.6 % #NEUT 4.11 TH/CMM L=2.10 H=8.20 #LYMP 1.18 TH/CMM L=0.90 H=5.20 #MONO 0.81 TH/CMM L=0.16 H=1.00 #EOS 0.16 TH/CMM L=0.00 H=0.80 #BASO 0.04 TH/CMM L=0.00 H=0.20 SEGS 54 % BANDS 6 % LYMPHS 16 % MONOS 20 % EOS 3 % BASO 1 % METAS MYELO PROS BLASTS ATYP LYMPHS RBC MORPH PROTIME - Collect Date/Time: 01/25/2017 06:35 [employer] ID: [id number] [address], [place], [id number] [facility] [employer] ID: [id number] [address], [place], [place], [address] LOINC: 94820-3 Test Value Unit Reference Range Code Code System PROTIME 23.6 SEC L=9.9 H=11.9 5964-2 LOINC INR 2.1 33383-5 LOINC MAGNESIUM - Collect Date/Time: 01/25/2017 06:35 [facility] ID: [id number] [address], [place], [place], [address] [facility] ID: [id number] [address], [place], [place], [address] LOINC: 95671-3 Test Value Unit Reference Range Code Code System MAGNESIUM 1.7 MG/DL L=1.7 H=2.8 61557-8 LOINC RENAL FUNCTION PANEL - Collect Date/Time: 01/25/2017 06:35 [facility] ID: [id number] [address], [place], [place], [address] [facility] ID: [id number] [address], [place], [place], [address] LOINC: 03955-8 Test Value Unit Reference Range Code Code System GLUCOSE 92 MG/DL L=70 H=100 2345-7 LOINC SODIUM 138 MEQ/L L=135 H=148 2951-2 LOINC POTASSIUM 4.3 MEQ/L L=3.5 H=5.3 2823-3 LOINC CHLORIDE 103 MEQ/L L=96 H=110 2075-0 LOINC CO2 27 MEQ/L L=22 H=29 2028-9 LOINC BUN 8 MG/DL L=8 H=22 3094-0 LOINC CREATININE 0.6 MG/DL L=0.6 H=1.6 2160-0 LOINC ALBUMIN 3.3 G/DL L=3.1 H=5.4 1751-7 LOINC CALCIUM 9.8 MG/DL L=8.2 H=10.6 63825-7 LOINC PHOSPHORUS 3.9 MG/DL L=2.5 H=4.5 2777-1 LOINC AGE 31 yrs GFR NonAA 117 GFR AA 142 eGFR >60 eGFR AA* >60 PROCALCITONIN - Collect Date/Time: 01/24/2017 19:40 [facility] [employer] ID: [id number] [address], [place], [place], [address] LOINC: 91923-3 Test Value Unit Reference Range Code Code System Procalcitonin 0.03 ng/mL 0.00-0.08 68431-8 LOINC RSV - Collect Date/Time: 01/24/2017 16:40 [employer] ID: [id number] [address], [place], [place], [address] [facility] [employer] ID: [id number] [address], [place], [place], [address] LOINC: 5876-8 Test Value Unit Reference Range Code Code System RSV NEGATIVE NL: NEGATIVE 5876-8 LOINC INFLUENZA A AND B - Collect Date/Time: 01/24/2017 16:40 [facility] [employer] ID: [id number] [address], [place], [place], [address] [employer] ID: [id number] [address], [place], [place], [address] LOINC: 6437-8 Test Value Unit Reference Range Code Code System INFLUENZA A & B NO INFLUENZA A OR B DETECTED 6437- 8 LOINC CX CHEST 1 VIEW - Completed: 01/26/2017 06:18 LOINC: EXAMINATION:CX CHEST 1 VIEWREASON FOR EXAM:Shortness of BreathCOMPARISON:January 24, 2017FINDINGS:The heart size, pulmonary vascularity and mediastinum are stable. Sternotomy wires are seen. No pleural effusion or pneumothorax is seen. No consolidation is evident. There is some centrilobular opacities. IMPRESSION:1.There is some central alveolar opacity in the lungs. This may represent pulmonary edema or pneumonitis. This is essentially stable. 2.No pneumothorax or peripheral consolidation is seen. Reviewed and Electronically Signed by: Harjinder Hein MD DABRSigned Date/Time: 01/26/2017 10:58 AMJob ID#: [id number] VIDEO SWALLOW - Completed: 01/27/2017 09:37 LOINC: EXAMINATION:VIDEO SWALLOWREASON FOR EXAM:Reason for Test: possible aspirationCOMPARISON:January 23, 2017FINDINGS:The procedure was performed by Annabelle Mcgill. Fluoroscopic assistance was provided.The patient was given thin barium, thickened barium and barium coated food. There is a normal swallowing mechanism. No significant residual is seen in the vallecula. No aspiration or laryngeal penetration is seenSkin dose mappin.18 mGyIMPRESSION:1.Normal video swallow. Reviewed and Electronically Signed by: Harjinder Hein MD DABRSigned Date/Time: 01/27/2017 12:26 PMJob ID#: [id number] Social History Type Status Start Date End Date Code Code System Smoking History Never smoker (Never Smoked) 063370009 SNOMED-CT Smoking History Current every day smoker 719824222 SNOMED-CT Smoking History Former smoker 7929328 SNOMED- CT Smoking History Unknown if ever smoked 559704286 SNOMED-CT Vital Signs Vital Sign Value Unit [place] Value [place] Unit Date/Time Recent/Initial? Code Code System Body Mass Index 19.05 kg/m2 01/27/2017 05:31 Most Recent 79190-8 [facility] Body Mass Index 18.75 kg/m2 01/24/2017 15:47 [facility] 32434-2 [facility] Systolic Blood Pressure 104 mm[Hg] 01/27/2017 08:26 Most Recent 8480-6 [facility] Diastolic Blood Pressure 68 mm[Hg] 01/27/2017 08:26 [facility] Recent 8462-4 [facility] Systolic Blood Pressure 101 mm[Hg] 01/24/2017 15:47 [facility] 8480-6 [facility] Diastolic Blood Pressure 62 mm[Hg] 01/24/2017 15:47 [facility] 8462-4 LOINC Body Surface Area 1.69 m2 01/27/2017 05:31 Most Recent 3140-1 LOINC Body Surface Area 1.67 m2 01/24/2017 15:47 Inital 3140-1 LOINC Height 175.2600 cm 69.00 in 01/27/2017 05:31 Most Recent 8302-2 LOINC Height 175.2600 cm 69.00 in 01/24/2017 15:47 Inital 8302-2 LOINC O2 Saturation 99 % 01/27/2017 08:26 Most Recent 16377-8 LOINC O2 Saturation 100 % 01/24/2017 15:47 Inital 72075-0 LOINC Pulse 100.0 /min 01/27/2017 08:26 Most Recent 8867-4 LOINC Pulse 86.0 /min 01/24/2017 15:47 Inital 8867-4 LOINC Respiration 16 /min 01/27/2017 08:26 Most Recent 9279-1 LOINC Respiration 18 /min 01/24/2017 15:47 Inital 9279-1 LOINC Temperature 36.1 Regina 96.9 F 01/27/2017 03:42 Most Recent 8310-5 LOINC Temperature 36.4 Regina 97.5 F 01/24/2017 15:47 Inital 8310-5 LOINC Weight 58.5134 kg 129.00 lbs 01/27/2017 05:31 Most Recent 16939-9 LOINC Weight 57.6062 kg 127.00 lbs 01/24/2017 15:47 Inital 01749-1 LOINC Assessment You had the following problems: POSTOPERATIVE COMPLICATION BILATERAL PNEUMONIA CELLULITIS OF THIGH Hospital Discharge Instructions Should you have any questions prior to discharge, please contact a member of your healthcare team. If you have left the hospital and have any questions, please contact your primary care physician. HOME MEDICATION INSTRUCTIONS: Take only the medications listed. Verbalizes understanding of instructions. FOLLOW UP APPOINTMENT: FOLLOW UP WITH WOUND CARE CLINIC IS SCHE DULED FOR 02/03/17 AT 1PM. FOLLOW UP WITH DR. CHU IS SCHEDULED FOR 02/03/17 AT 3PM. CONTACT PHYSICIAN IF YOU EXPERIENCE ANY: fever GREATER THAN 101, Shortness of Breath. ACTIVITY INSTRUCTIONS(list limitations): Activity as Tolerated. HOME DIET: MECHANICAL SOFT DIET. FOLLOW-UP OUTPATIENT SERVICES: Home Health services arranged:[facility]. [facility] TO GET Blood Work (INR) to be drawn on:FRIDAY AND RESULTS TO BE FAXED TO DR. CHU'S OFFICE. PERSONAL ITEMS RETURNED: Yes. PATIENT PORTAL/OTHER INSTRUCTIONS: Provided education info on Patient Ana Lilia. INSTRUCTIONS GIVEN AND DISCHARGE TO: Patient. INSTRUCTIONS GIVEN BY (TYPE IN NAME AND DATE) Tesfaye WETZEL RN. 01/27/17 SCRIPTS WRITTEN BY DOCTOR GIVEN TO PATIENT? Yes, for what? LEVOFLOXACIN 500MG DAILY AND METOPROLOL TARTRATE 50MG TWICE A DAY. Reason For Referral No Data Found Hospital Course You were admitted to [facility] on 01/24/2017 15:18 with a principal diagnosis of Pneumonia, unspecified organism You were discharged from [facility] on 01/27/2017 13:00 Medications Medication Start Date End Date Route Frequency Dose Code Code System Warfarin Sodium 5MG Oral Tablet 01/27/2017 Unknown G TUBE DAILY 5 MILLIGRAMS 918738 RxNorm Senna 8.8MG/5ML Oral Syrup 01/27/2017 Unknown G TUBE TWO TIMES A DAY 20 mL [id number] RxNorm Roxicodone 5MG Oral Tablet 01/27/2017 Unknown G TUBE NEEDED EVERY 4 HR 5 MILLIGRAMS [id number] RxNorm Protonix 40MG Oral Tablet, Enteric Coated 01/27/2017 Unknown G TUBE DAILY 40 MILLIGRAMS [id number] RxNorm ProAir HFA 0.09MG/1Actuation Inhalation Suspension 01/27/2017 Unknown INHALATION NEEDED EVERY 6 HR 2 PUFF [id number] RxNorm Flovent HFA 0.22MG/1Actuation Inhalation Aerosol Powder 01/27/2017 Unknown INHALATION TWO TIMES A DAY 2 PUFF [id number] RxNorm Aspirin 81MG Oral Tablet, Enteric Coated 01/27/2017 Unknown G TUBE DAILY 81 MILLIGRAMS [id number] RxNorm levoFLOXacin 500MG Oral Tablet 01/27/2017 Unknown BY MOUTH DAILY 1 TABLET [id number] RxNorm Metoprolol Tartrate 50MG Oral Tablet 01/27/2017 Unknown BY MOUTH TWO TIMES A DAY 50 MILLIGRAMS [id number] RxNorm Procedures No Data Found Implants No Data Found Problems Problem Start Date Resolved Date Status Code Code System POSTOPERATIVE COMPLICATION active 113167995 SNOMED-CT BILATERAL PNEUMONIA 01/24/2017 active 978670099 SNOMED-CT CELLULITIS OF THIGH 01/24/2017 active 56349284 SNOMED-CT OVARIAN TORSION 09/03/2011 resolved 84008032 SNOMED-CT Allergies Allergy Substance Reaction Severity Start Date Concern Status Code Code System No Known Drug Allergies Active RxNorm Plan of Treatment No Data Found Encounters No Data Found Goals No Data Found Discharge Medications No Data Found Discharge Diagnosis Discharge Diagnosis Diagnosis Code Start Date Pneumonia, unspecified organism [id number] 01/24/2017 Health Concerns Section No Data Found
--- OUTSIDE RECORDS SUMMARY | 2018-10-30 00:36 | XMS REPORT | CCD ---
Author Author ANIYAH ROLLINS Unknown Address [address] [facility] [address] [place] [address] Care Team Providers Care Cashier And Salesperson Name Role Phone YUAN KRAUS MD Attphys 0 YUAN KRAUS MD Prisurg 0 Allergies Unknown or Not Available. Active Medications Medication Code Dose Units Frequency Route Modification Start Date/Time Aspirin 81MG Oral Tablet, Enteric Coated 229472 81 MILLIGRAMS DAILY G TUBE 01/27/2017 11:15 Prescription Detail 81 MILLIGRAMS G TUBE DAILY Flovent HFA 0.22MG/1Actuation Inhalation Aerosol Powder 946508 2 PUFF TWO TIMES A DAY INHALATION 01/27/2017 11:15 Prescription Detail 2 PUFF INHALATION TWO TIMES A DAY levoFLOXacin 500MG Oral Tablet 018807 1 TABLET DAILY BY MOUTH 01/27/2017 11:15 Prescription Detail 1 TABLET BY MOUTH DAILY Metoprolol Tartrate 50MG Oral Tablet 915431 50 MILLIGRAMS TWO TIMES A DAY BY MOUTH 01/27/2017 11:15 Prescription Detail 50 MILLIGRAMS BY MOUTH TWO TIMES A DAY ProAir HFA 0.09MG/1Actuation Inhalation Suspension 444907 2 PUFF NEEDED EVERY 6 HR INHALATION 01/27/2017 11:15 Prescription Detail 2 PUFF INHALATION NEEDED EVERY 6 HR Protonix 40MG Oral Tablet, Enteric Coated 235135 40 MILLIGRAMS DAILY G TUBE 01/27/2017 11:15 Prescription Detail 40 MILLIGRAMS G TUBE DAILY Roxicodone 5MG Oral Tablet [id number] 5 MILLIGRAMS NEEDED EVERY 4 HR G TUBE 01/27/2017 11:15 Prescription Detail 5 MILLIGRAMS G TUBE NEEDED EVERY 4 HR Senna 8.8MG/5ML Oral Syrup 728385 20 mL TWO TIMES A DAY G TUBE 01/27/2017 11:15 Prescription Detail 20 mL G TUBE TWO TIMES A DAY Warfarin Sodium 5MG Oral Tablet 609167 5 MILLIGRAMS DAILY G TUBE 01/27/2017 11:15 Prescription Detail 5 MILLIGRAMS G TUBE DAILY Problems Problem Code Start Date Resolved Date Status Postoperative complication 388515460 01/24/2017 Active Bilateral pneumonia 364959561 01/24/2017 Active Cellulitis of thigh 00347007 01/24/2017 Active Procedures Procedure Code Procedure Type Date CX CHEST 1 VIEW 159346730 [facility] CT 01/05/2017 COMPREHENSIVE METABOLIC PANEL 770041376 [facility] CT 01/05/2017 TROPONIN-I ADV 442036092 [facility] CT 01/05/2017 CBC W/ AUTO DIFF (RFLX MAN DIFF IF IND) 0028149 [facility] CT 01/05/2017 ^CBC W/AUTO DIFF [id number] [facility] CT 01/05/2017 Results COMPREHENSIVE METABOLIC PANEL - Collect Date/Time: 01/05/2017 10:00 Test Name Code Test Result Test Units Test Ref Range GLUCOSE 2345-7 115 MG/DL L=70 H=100 SODIUM 2951-2 136 MEQ/L L=135 H=148 POTASSIUM 2823-3 4.0 MEQ/L L=3.5 H=5.3 CHLORIDE 2075-0 99 MEQ/L L=96 H=110 CO2 2028-9 27 MEQ/L L=22 H=29 BUN 3094-0 13 MG/DL L=8 H=22 CREATININE 2160-0 0.7 MG/DL L=0.6 H=1.6 SGOT/AST 1920-8 21 IU/L L=10 H=40 SGPT/ALT 1742-6 43 IU/L L=8 H=54 ALK PHOS 6768-6 84 IU/L L=35 H=115 TOTAL PROTEIN 2885-2 7.8 G/DL L=5.5 H=8.5 ALBUMIN 1751-7 3.4 G/DL L=3.1 H=5.4 TOTAL BILI 1975-2 0.7 MG/DL L=0.0 H=1.5 CALCIUM 89820-1 10.3 MG/DL L=8.2 H=10.6 AGE 31 yrs GFR NonAA 98 GFR AA 119 eGFR >60 N/A eGFR AA* >60 N/A CBC W/ AUTO DIFF (RFLX MAN DIFF IF IND) - Collect Date/Time: 01/05/2017 10:00 Test Name Code Test Result Test Units Test Ref Range WBC 74093-5 9.6 TH/CMM L=4.5 H=10.8 RBC 789-8 3.27 ML/CMM L=4.20 H=5.40 HGB 718-7 10.1 G/DL L=12.0 H=16.0 HCT 4544-3 31.4 % L=37.0 H=47.0 MCV 96 FL L=81 H=99 MCH 30.9 PG L=27.0 H=33.0 MCHC 32.2 G/DL L=31.0 H=36.0 RDW SD 59 FL L=36 H=50 RDW CV 16.9 % L=0.0 H=14.8 MPV 8.6 FL L=9.3 H=12.5 PLT 777-3 540 TH/CMM L=130 H=440 NRBC# 0.00 TH/CMM L=0.00 H=0.00 NRBC% 0.0 /100WBC L=0.0 H=2.0 %NEUT 76.2 % %LYMP 8.8 % %MONO 10.4 % %EOS 3.8 % %BASO 0.4 % #NEUT 7.34 TH/CMM L=2.10 H=8.20 #LYMP 0.85 TH/CMM L=0.90 H=5.20 #MONO 1.00 TH/CMM L=0.16 H=1.00 #EOS 0.37 TH/CMM L=0.00 H=0.80 #BASO 0.04 TH/CMM L=0.00 H=0.20 MANUAL DIFF NOT IND N/A PT/PTT - Collect Date/Time: 01/05/2017 10:00 Test Name Code Test Result Test Units Test Ref Range PROTIME 5964-2 16.1 SEC L=9.9 H=11.9 INR 33787-4 1.5 PTT 3173-2 34.5 SEC L=22.2 H=37.2 TROPONIN-I ADV - Collect Date/Time: 01/05/2017 10:00 Test Name Code Test Result Test Units Test [place] [address]-9 <0.04 ng/mL L=0.04 H=0.40 Function Status Unknown or Not Available. History of Immunizations Immunization Code Date DTP 07/10/1989 DTP 10/21/1989 DTP 07/10/1989 DTP 10/21/1989 OPV 02 07/10/1989 OPV 10/21/1989 OPV 02 07/10/1989 OPV 02 10/21/1989 MMR 10/21/1989 MMR 03 10/21/1989 Td (adult), 2 Lf tetanus toxoid, preservative free, adsorbed 09 06/05/2005 Td (adult), 2 Lf tetanus toxoid, preservative free, adsorbed 06/05/2005 influenza, split (incl. purified surface antigen) 15 02/25/2003 influenza, split (incl. purified surface antigen) 15 02/25/2003 Influenza, seasonal, injectable, preservative free 140 01/14/2012 Influenza, seasonal, injectable, preservative free 140 01/14/2012 Plan of Treatment Unknown or Not Available. Social History Smoking Status Code Start Date End Date Current every day smoker 890816410 Vital Signs Unknown or Not Available. Function Status Unknown or Not Available. Goals Unknown or Not Available. ASSESSMENTS Unknown or Not Available. Health Concerns Section Unknown or Not Available.
--- OUTSIDE RECORDS SUMMARY | 2018-10-30 00:37 | XMS REPORT ---
Author Author Marlyn Hawthorne [facility] Address [address] [place], [place] [address] Care Team Providers Care Grinding Wheel Operator Name Role Phone Marlyn Hawthorne PCP Harjinder Salazar PreferredProvider Allergies and Adverse Reactions Name Reaction Notes Chantix bad dreams Keflex Plan of Treatment Planned Activity Comments Planned [...] by inhalation route 2 times per day ProAir HFA 90 mcg/actuation inhalation HFA aerosol inhaler inhale 2 puffs (180 mcg) by inhalation route every 6 hours as needed metoprolol tartrate 50 mg oral tablet take 1 tablet (50 mg) by oral route 2 times per day with meals Wellbutrin XL 300 mg oral tablet extended release 24 hr 05/13/2017 11/04/2018 take 1 tablet (300 mg) by oral route once daily for 90 days temazepam 15 mg oral capsule 10/24/2017 04/22/2018 take 1 capsule (15 mg) by oral route once daily at bedtime as needed for 30 days tramadol 50 mg oral tablet 11/27/2017 02/25/2018 take 1 tablet by oral route every 8 hours for 30 days albuterol sulfate 2.5 mg /3 mL (0.083 %) inhalation solution for nebulization 01/02/2018 USE CONTENTS OF ONE VIAL BY MOUTH PER NEBULIZER THREE TIMES A DAY Anoro Ellipta 62.5-25 mcg/actuation inhalation blister with device 01/02/2018 inhale 1 puff by inhalation route once daily at the same time each day Xarelto 20 mg oral tablet take 1 tablet (20 mg) by oral route once daily with the evening meal Name Start Date Expiration Date SIG Comments Lopressor 100 mg oral tablet take 1 tablet (100 mg) by oral route once daily with a meal nebulizer machine + supplies one kit 01/24/2017 02/23/2017 Use TID per insert instructions warfarin 5 mg oral tablet 01/24/2017 02/23/2017 take 1 tablet (5 mg) by oral route once daily for 30 days amoxicillin 500 mg oral tablet 08/28/2017 09/04/2017 take 1 tablet (500 mg) by oral route every 12 hours for 7 days clindamycin HCl 150 mg oral capsule 09/08/2017 09/15/2017 take 1 capsule by oral route every 6 hours for 7 days nicotine 14 mg/24 hr transdermal patch 24 hour 09/23/2017 12/22/2017 apply 1 patch (14 mg) by transdermal route once daily for 30 days amoxicillin 500 mg oral capsule 10/06/2017 10/13/2017 take 1 capsule (500 mg) by oral route every 12 hours for 7 days hydrocodone-acetaminophen 5-325 mg oral tablet 10/24/2017 10/31/2017 take 1 tablet by oral route 2 times a day for 7 days Zofran ODT 4 mg oral tablet,disintegrating 10/24/2017 10/31/2017 dissolve 1 tablet by oral route every 8 hours for 7 days amoxicillin 500 mg oral capsule 11/17/2017 11/24/2017 take 1 capsule (500 mg) by oral route every 12 hours for 7 days Discontinued Name Start Date Discontinued Date [...] by oral route 2 times a day hydrocodone-acetaminophen 5-325 mg oral tablet 05/13/2017 take 2 tablets by oral route every 6 hours as needed for pain Remeron 15 mg oral tablet 05/13/2017 06/16/2017 take 0.5 tablet by oral route daily for 30 days mupirocin 2 % topical ointment 05/14/2017 01/09/2018 apply a small amount to the affected area by topical route 3 times per day for 10 days Keflex 500 mg oral capsule 09/08/2017 09/08/2017 take 1 capsule (500 mg) by oral route every 12 hours for 7 days pt states she is allergic to this antibiotic doxycycline monohydrate 150 mg oral capsule 01/09/2018 Problem List Description Status Onset Asthma Active Vital Signs Date Time BP-Sys(mm[Hg] BP-Mayra(mm[Hg]) HR(bpm) RR(rpm) Temp WT HT HC BMI BSA BMI Percentile O2 Sat(%) 01/09/2018 10:15:00 AM 123 mmHg 71 mmHg 87 bpm 16 rpm 97.9 F 133.375 lbs 68 in 20.2794 kg/m 1.7037 m 100 % 10/24/2017 11:15:00 AM 121 mmHg 62 mmHg 76 bpm 18 rpm 98.1 F 136.125 lbs 68 in 20.70 kg/m2 1.72 m2 97 % 10/24/2017 11:15:00 AM 76 bpm 18 rpm 98.1 F 136.125 lbs 68 in 20.70 kg/m2 1.72 m2 97 % 10/16/2017 10:39:00 AM 98 mmHg 70 mmHg 83 bpm 18 rpm 97.9 F 136.125 lbs 68 in 20.70 kg/m2 1.72 m2 98 % 09/23/2017 9:07:00 AM 115 mmHg 79 mmHg 82 bpm 18 rpm 97.9 F 136 lbs 68 in 20.6785 kg/m 1.7204 m 100 % 09/08/2017 2:48:00 PM 100 mmHg 58 mmHg 82 bpm 18 rpm 97.9 F 139.5 lbs 98 % 08/26/2017 11:41:00 AM 121 mmHg 63 mmHg 82 bpm 18 rpm 98.2 F 140.125 lbs 68 in 21.3057 kg/m 1.7463 m 99 % 07/24/2017 12:50:00 PM 106 mmHg 66 mmHg 66 bpm 16 rpm 98.2 F 147.125 lbs 68 in 22.37 kg/m2 1.79 m2 99 % 05/13/2017 10:51:00 AM 110 mmHg 74 mmHg 87 bpm 16 rpm 98.5 F 148.25 lbs 69 in 21.8925 kg/m 1.8093 m 97 % 03/14/2017 11:06:00 AM 98 mmHg 76 mmHg [...] m2 Social History Name Description Comments Tobacco Current every day smoker Alcohol Use - Occasional History of [...] 12:00 AM ASSAY OF NATRIURETIC PEPTIDE Returned 02/12/2017 12:00 AM Misc Order Returned 01/24/2017 12:00 AM CHEST X-RAY 2VW FRONTAL&LATL Returned 01/24/2017 12:00 AM COMPLETE CBC W/AUTO DIFF WBC Reviewed 01/24/2017 12:00 AM C-REACTIVE PROTEIN Reviewed 01/24/2017 12:00 AM BLOOD CULTURE FOR BACTERIA Reviewed 01/24/2017 12:00 AM COMPREHEN METABOLIC PANEL Reviewed 07/24/2017 12:00 AM COMPLETE CBC W/AUTO DIFF WBC Returned 07/24/2017 12:00 AM COMPREHEN METABOLIC PANEL Returned 07/25/2017 12:00 AM HEPATOBILIARY SYSTEM IMAGING Returned 10/16/2017 12:00 AM COMPLETE CBC W/AUTO DIFF WBC Reviewed 10/16/2017 12:00 AM C-REACTIVE PROTEIN Reviewed 10/16/2017 12:00 AM RBC SED RATE AUTOMATED Reviewed 10/16/2017 12:00 AM COMPREHEN METABOLIC PANEL Reviewed 10/24/2017 12:[address] THORAX W/DYE Reviewed 01/09/2018 12:00 AM Rocephin 1 gram Injection Reviewed Results Summary Date and Description Results [...] 15.0 %MPV 8.50 fLPLT 373 NRBC# 0.00 NRBC% 0.0 %NEUT 65.50 %%LYMP 20.20 %%MONO 11.30 %%EOS 2.0 %%BASO 0.80 %#NEUT 4.35 #LYMP 1.34 #MONO 0.75 #EOS 0.13 #BASO 0.05 MANUAL DIFF NOT IND GLUCOSE 99.0 mg/dLSODIUM 137.0 mmol/LPOTASSIUM 4.40 mmol/LCHLORIDE 101.0 mmol/LCO2 28.0 mmol/LBUN 11.0 mg/dLCREATININE 0.70 mg/dLSGOT/AST 17.0 IU/LSGPT/ALT 17.0 IU/LALK PHOS 79.0 IU/LTOTAL PROTEIN 8.40 g/dLALBUMIN 3.80 g/dLTOTAL BILI 0.70 mg/dLCALCIUM 10.20 mg/dLAGE 31 GFR NonAA 98 GFR AA 119 eGFR >60 mL/min/1.73meGFR AA* >60 C REACTIVE PROTEIN 17.0 mg/L 10/16/2017 12:10 PM WBC 4.4 RBC 4.54 HGB 11.2 HCT 37.2 MCV 82 MCH 24.7 MCHC 30.1 RDW SD 53 RDW CV 17.7 MPV 8.7 PLT 348 NRBC# 0.00 NRBC% 0.0 %NEUT 57.9 %LYMP 28.0 %MONO 9.8 %EOS 3.2 %BASO 1.1 #NEUT 2.54 #LYMP 1.23 #MONO 0.43 #EOS 0.14 #BASO 0.05 MANUAL DIFF NOT IND GLUCOSE 93 SODIUM 136 POTASSIUM 4.0 CHLORIDE 103 CO2 26 BUN 10 CREATININE 0.8 SGOT/AST 19 SGPT/ALT 31 ALK PHOS 75 TOTAL PROTEIN 7.7 ALBUMIN 4.1 TOTAL BILI 0.4 CALCIUM 10.0 AGE 32 GFR NonAA 84 GFR AA 102 eGFR 84 eGFR AA* >60 C REACTIVE PROTEIN <0.5 SEDRATE 28 History Of Immunizations Not available. History of Past Illness Name Date of Onset Comments Asthma Aortic valve replaced 12/12/16 GERD (gastroesophageal reflux disease) Chronic pain Depression and anxiety Amenorrhea May 14 2012 2:27PM test confirmed positive Aug 22 2011 [...] 2017 11:13AM Dysphagia Jan 10 2017 11:13AM alf (current) use of anticoagulants Jan 10 2017 [...] 2017 11:17AM Anorexia Mar 14 2017 11:17AM Sternocostal pain May 13 2017 10:54AM Anorexia May 13 2017 10:54AM Wound cellulitis after surgery, sequela May 13 2017 10:54AM Heart Failure, Diastolic Jul 24 2017 12:57PM Transaminitis Jul 24 2017 12:57PM RUQ pain Jul 24 2017 12:57PM Tobacco dependence Aug 26 2017 11:44AM Cellulitis Sep 08 2017 2:52PM Bronchitis Sep 08 2017 2:52PM Low back pain Aug 26 2017 11:44AM Other chronic pain Aug 26 2017 11:44AM Chronic Obstructive Pulmonary Disease Aug 26 2017 11:44AM Establishing care with new doctor, encounter for Aug 26 2017 11:44AM Tobacco dependence Sep 23 2017 9:11AM Chills Oct 16 2017 10:42AM Chronic fatigue Oct 16 2017 10:42AM Nausea Oct 16 2017 10:42AM Intercostal pain Oct 16 2017 10:42AM Acute left-sided thoracic back pain Oct 24 2017 11:19AM Aortic valve replaced Oct 24 2017 11:19AM IV drug user Oct 24 2017 11:19AM Chest pain varying with breathing Oct 24 2017 11:19AM Urinary tract infection Jan 09 2018 10:24AM Bronchitis Jan 09 2018 10:24AM Payers Insurance Name Company Name Plan Name Plan Number Policy Number Policy Group Number Start Date Amer[employer] - [place] Amer[employer] [place] [id number] N/A Amer[employer] [place] Amer[employer] [place] State [place] [id number] N/A zzz[employer] - CMFHP Coventry -CMFHP [id number] N/A [employer] - RHC - CMFHP [employer] - RHC - CMFHP [id number] N/A History of Encounters Visit Date Visit Type Provider 01/09/2018 Office visit Marlyn Hawthorne HEAD TURBINE OPERATOR 10/24/[address] Harjinder Salazar MD 10/23/2017 [facility] Samaniego MD 10/16/[address] Harjinder Salazar MD 09/23/[address] Harjinder Salazar MD 09/08/2017 Office visit Marlyn Hawthorne HEAD TURBINE OPERATOR 08/26/[address] Harjinder Salazar MD 07/24/2017 Office visit Christin Ramirez MD 05/13/2017 Office visit Christin Ramirez MD 03/14/2017 [facility] Samaniego MD 03/14/2017 Office visit Christin Ramirez MD 02/12/2017 Office visit Christin Ramirez MD 02/09/2017 [facility] Samanie[facility] MD 02/08/2017 [facility] Samaniego MD 02/03/2017 Office visit Christin Ramirez MD 01/24/2017 [facility] Matthias Thomas MD 01/24/2017 Office visit Etta Lowe HEAD TURBINE OPERATOR 01/10/2017 Office visit Christin Ramirez MD 01/05/2017 [facility] Samaniego MD 12/12/2011 Nurse visit [...] 09/12/2011 Office visit Edson Dean MD 09/03/2011 [facility] Edson Dean MD 09/03/2011 [facility] Manjit Carey MD 09/03/2011 [facility] Edson Dean MD 08/22/2011 Office visit Edson Dean MD 08/05/2011 Office visit Kaylin Marx APRN
--- OUTSIDE RECORDS SUMMARY | 2018-10-30 00:37 | XMS REPORT ---
Author Author Etta Lowe Organization [facility] Address [address] [place], [place] [address] Care Team Providers Care Senior Publications Specialist Name Role Phone Etta Lowe PCP Harjinder Salazar PreferredProvider Allergies and Adverse [...] oral route once daily for 90 days albuterol sulfate 2.5 mg /3 mL [...] route once daily with the evening meal tramadol 50 mg oral tablet 02/13/2018 05/14/2018 take 1 tablet by oral route every 8 hours for 30 days Tessalon Perles 100 mg oral capsule 03/30/2018 take 1 capsule (100 mg) by oral route 3 times per day as needed for cough temazepam 15 mg oral capsule 04/14/2018 08/12/2018 take 1 capsule (15 mg) by oral route once daily at bedtime as needed for 30 days Name Start [...] route every 12 hours for 7 days doxycycline hyclate 100 mg oral capsule 03/30/2018 04/09/2018 take 1 capsule (100 mg) by oral route 2 times per day for 10 days Discontinued Name Start Date Discontinued Date [...] HC BMI BSA BMI Percentile O2 Sat(%) 03/30/2018 6:07:00 PM 100 mmHg 62 mmHg 69 bpm 18 rpm 97.9 F 125.375 lbs 68 in 19.063 kg/m 1.6518 m 100 % 01/09/2018 10:15:00 AM 123 mmHg 71 mmHg 87 bpm 16 rpm 97.9 F 133.375 lbs 68 in 20.28 kg/m2 1.70 m2 100 % 10/24/2017 11:15:00 AM 121 mmHg 62 mmHg 76 bpm 18 rpm 98.1 F 136.125 lbs 68 in 20.6975 kg/m 1.7212 m 97 % 10/24/2017 11:15:00 AM 76 bpm 18 rpm 98.1 F 136.125 lbs 68 in 20.6975 kg/m 1.7212 m 97 % 10/16/2017 10:39:00 AM 98 mmHg [...] disease) Chronic pain Depression and anxiety Amenorrhea Aug 05 2011 2:27PM test confirmed [...] 2017 11:13AM Dysphagia Jan 10 2017 11:13AM long term care phlebotomist (current) use of anticoagulants Jan 10 2017 [...] 2018 10:24AM Bronchitis Jan 09 2018 10:24AM Sinusitis Mar 30 2018 6:09PM Payers Insurance Name Company Name Plan Name Plan Number Policy Number Policy Group Number Start Date [employer] [id number] N/A [employer] - CMFHP Coventry -CMFHP [id number] N/A [employer] - RHC - CMFHP [employer] - RHC - CMFHP [id number] N/A Amer[employer] [place] Amer[employer] [place] [id number] N/A [employer] [place] [employer] [place] [id number] N/A History of Encounters Visit Date Visit Type Provider 03/30/2018 Office visit Etta Lowe LEGAL RECEPTIONIST 03/11/2018 [facility] MD 03/10/2018 [facility] MD 01/09/2018 Office visit Marlyn Hawthorne LEGAL RECEPTIONIST 10/24/[address] Harjinder Salazar MD 10/23/2017 [facility] Wing Samaniego MD 10/16/[address] Harjinder Salazar MD 09/23/[address] Harjinder Salazar MD 09/08/2017 Office visit Marlyn Hawthorne LEGAL RECEPTIONIST 08/26/[address] Harjinder Salazar MD 07/24/2017 Office visit Christin Ramirez MD 05/13/2017 Office visit Christin Ramirez MD 03/14/2017 [facility] Wing Samaniego MD 03/14/2017 Office visit Christin Ramirez MD 02/12/2017 Office visit Christin Ramirez MD 02/09/2017 [facility] Wing Samaniego MD 02/08/2017 [facility] Wing Samaniego MD 02/03/2017 Office visit Christin Ramirez MD 01/24/2017 [facility] Matthias Thomas MD 01/24/2017 Office visit Etta Lowe LEGAL RECEPTIONIST 01/10/2017 Office visit Christin Ramirez MD 01/05/2017 [facility] Wing Samaniego MD 12/12/2011 Nurse visit [...] 09/12/2011 Office visit Edson Dean MD 09/03/2011 [facility] Edson Dean MD 09/03/2011 [facility] Manjit Carey MD 09/03/2011 [facility] Edson Dean MD 08/22/2011 Office visit Edson Dean MD 08/05/2011 Office visit Kaylin Marx LEGAL RECEPTIONIST
--- OUTSIDE RECORDS SUMMARY | 2018-10-30 00:38 | XMS REPORT ---
Author Harjinder Ahmadi [facility] Address [address] [place], [place] [address] Care Team Providers Care Explosive Ordnance Specialist Name Role Phone Harjinder Salazar PCP Harjinder Salazar PreferredProvider Allergies and Adverse [...] oral route once daily for 90 days mupirocin 2 % topical ointment 05/14/2017 apply a small amount to the affected area by topical route 3 times per day for 10 days nicotine 14 mg/24 hr transdermal patch 24 hour 09/23/2017 12/22/2017 apply 1 patch (14 mg) by transdermal route once daily for 30 days tramadol 50 mg oral tablet 09/30/2017 11/29/2017 take 1 tablet by oral route every 8 hours for 30 days doxycycline monohydrate 150 mg oral capsule temazepam 15 mg oral capsule 10/24/2017 04/22/2018 [...] route every 6 hours for 7 days amoxicillin 500 mg oral capsule 10/06/2017 10/13/2017 take 1 capsule (500 mg) by oral route every 12 hours for 7 days hydrocodone-acetaminophen 5-325 mg oral tablet 10/24/2017 10/31/2017 take 1 tablet by oral route 2 times a day for 7 days Zofran ODT 4 mg oral tablet,disintegrating 10/24/2017 10/31/2017 dissolve 1 tablet by oral route every 8 hours for 7 days Discontinued Name Start [...] by oral route daily for 30 days Keflex 500 mg oral capsule 09/08/2017 09/08/2017 take 1 capsule (500 mg) by oral route every 12 hours for 7 days pt states she is allergic to this antibiotic Problem List Description Status Onset Asthma Active Vital Signs Date Time BP-Sys(mm[Hg] BP-Mayra(mm[Hg]) HR(bpm) RR(rpm) Temp WT HT HC BMI BSA BMI Percentile O2 Sat(%) 10/24/2017 11:15:00 AM 121 mmHg 62 mmHg [...] Reviewed 10/24/2017 12:[address] THORAX W/DYE Returned Results Summary Date and Description Results [...] varying with breathing Oct 24 2017 11:19AM Payers Insurance Name Company Name Plan Name Plan Number Policy Number Policy Group Number Start Date Amerigroup - [place] - [place] State [place] Amerigroup - [facility] State Plan [id number] N/A [employer] [place] State [place] [facility] [id number] N/A [employer] - CMFHP Coventry -CMFHP [id number] N/A [employer] - RHC - CMFHP [employer] - RHC - CMFHP [id number] N/A History of Encounters Visit Date Visit Type Provider 10/24/[address] Harjinder Salazar MD 10/16/[address] Harjinder Salazar MD 09/23/[address] Harjinder Salazar MD 09/08/2017 Office visit Marlyn Hawthorne WAREHOUSE PRODUCTION WORKER 08/26/[address] Harjinder Salazar MD 07/24/2017 Office visit Christin Ramirez MD 05/13/2017 Office visit Christin Ramirez MD 03/14/2017 [facility] Samaniego MD 03/14/2017 Office visit Christin Ramirez MD 02/12/2017 Office visit Christin Ramirez MD 02/09/2017 [facility] Samaniego MD 02/08/2017 [facility] Samaniego MD 02/03/2017 Office visit Christin Ramirez MD 01/24/2017 [facility] Matthias Thomas MD 01/24/2017 Office visit Etta Lowe WAREHOUSE PRODUCTION WORKER 01/10/2017 Office visit Christin Ramirez MD 01/05/2017 [facility] Wing Samaniego MD 12/12/2011 Nurse visit [...] 09/12/2011 Office visit Edson Dean MD 09/03/2011 [facility] Edson Dean MD 09/03/2011 [facility] Manjit Carey MD 09/03/2011 [facility] Edson Dean MD 08/22/2011 Office visit Edson Dean MD 08/05/2011 Office visit Kaylin Marx APRN
--- OUTSIDE RECORDS SUMMARY | 2018-10-30 00:38 | XMS REPORT ---
Author Harjinder Ahmadi [facility] Address [address] [place], [place] [address] Care Team Providers Care Nurse Receptionist Name Role Phone Harjinder Salazar PCP Harjinder [...] at bedtime as needed for 30 days amoxicillin 500 mg oral capsule 11/17/2017 11/24/2017 take 1 capsule (500 mg) by oral route every 12 hours for 7 days Name Start Date Expiration Date SIG [...] 2017 11:13AM Dysphagia Jan 10 2017 11:13AM senior living (current) use of anticoagulants Jan 10 2017 [...] Policy Number Policy Group Number [facility] Date [facility] [place] State [place] [employer] [place] [id number] N/A [employer] [place] [employer] [place] State [place] [id number] N/A [employer] - CMFHP Cov[employer] -CMFHP [id number] N/A [employer] - RHC - CMFHP [employer] - RHC - CMFHP [id number] N/A History of Encounters Visit Date Visit Type Provider 10/24/[address] Harjinder Salazar MD 10/16/[address] Harjinder Salazar MD 09/23/[address] Harjinder Salazar MD 09/08/2017 Office visit Marlyn Hawthorne CANCER RESEARCHER 08/26/[address] Harjinder Salazar MD 07/24/2017 Office visit Christin Ramirez MD 05/13/2017 Office visit Christin Ramirez MD 03/14/2017 [facility] Wing Samaniego MD 03/14/2017 Office visit Christin Ramirez MD 02/12/2017 Office visit Christin Ramirez MD 02/09/2017 [facility] Wing Samaniego MD 02/08/2017 [facility] Wing Samaniego MD 02/03/2017 Office visit Christin Ramirez MD 01/24/2017 [facility] Matthias Thomas MD 01/24/2017 Office visit Etta Lowe CANCER RESEARCHER 01/10/2017 Office visit Christin Ramirez MD 01/05/2017 [facility] Wing Samaniego MD 12/12/2011 Nurse visit [...] 09/12/2011 Office visit Edson Dean MD 09/03/2011 [facility] Edson Dean MD 09/03/2011 Hospital Manjit Carey MD 09/03/2011 [facility] Edson Dean MD 08/22/2011 Office visit Edson Dean MD 08/05/2011 Office visit Kaylin Marx APRN
--- OUTSIDE RECORDS SUMMARY | 2018-10-30 00:39 | XMS REPORT ---
Author Harjinder Ahmadi [facility] Address [address] [place], [place] [address] Care Team Providers Care Trade Sales Assistant Name Role Phone Harjinder Salazar PCP Harjinder Salazar PreferredProvider Allergies and Adverse Reactions Name Reaction Notes Chantix bad dreams Keflex Plan of Treatment Planned Activity Comments Planned Date Planned Time Plan/Goal Complete blood count (CBC) with differential count 01/10/2017 12:00 AM Comprehensive metabolic panel 01/10/2017 12:[address] CHEST W/CONTRAST 10/24/2017 12:00 AM Medications Active Name Start Date [...] at bedtime as needed for 30 days hydrocodone-acetaminophen 5-325 mg oral tablet 10/24/2017 10/31/2017 take 1 tablet by oral route 2 times a day for 7 days Zofran ODT 4 mg oral tablet,disintegrating 10/24/2017 10/31/2017 dissolve 1 tablet by oral route every 8 hours for 7 days Name Start Date Expiration Date SIG Comments Lopressor 100 mg oral tablet take 1 tablet (100 mg) by oral route once daily with a meal nebulizer machine + Gotuit one kit 01/24/2017 02/23/2017 Use TID per [...] 10/16/2017 12:00 AM COMPREHEN METABOLIC PANEL Reviewed Results [...] 2017 11:13AM Dysphagia Jan 10 2017 11:13AM 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 Harjinder Salazar MD 10/16/[address] Harjinder Salazar MD 09/23/[address] Harjinder Salazar MD 09/08/2017 Office visit Marlyn Hawthorne LINING STAMPER 08/26/[address] Harjinder Salazar MD 07/24/2017 Office visit Christin Ramirez MD 05/13/2017 Office visit Christin Ramirez MD 03/14/2017 [facility] Wing Samaniego MD 03/14/2017 Office visit Christin Ramirez MD 02/12/2017 Office visit Christin Ramirez MD 02/09/2017 [facility] Wing Samaniego MD 02/08/2017 [facility] Wing Samaniego MD 02/03/2017 Office visit Christin Ramirez MD 01/24/2017 [facility] Matthias Thomas MD 01/24/2017 Office visit Etta Lowe LINING STAMPER 01/10/2017 Office visit Christin Ramirez MD 01/05/2017 [facility] Wing Samaniego MD 12/12/2011 Nurse visit [...] 09/12/2011 Office visit Edson Dean MD 09/03/2011 [facility] Edson Dean MD 09/03/2011 [facility] Manjit Carey MD 09/03/2011 [facility] Edson Dean MD 08/22/2011 Office visit Edson Dean MD 08/05/2011 Office visit Kaylin Marx APRN
--- OUTSIDE RECORDS SUMMARY | 2018-10-30 00:40 | XMS REPORT ---
Author Harjinder Ahmadi [facility] Address [address] [place], [place] [address] Care Team Providers Care Powder Worker Tnt Name Role Phone Harjinder Salazar PCP Harjinder Salazar PreferredProvider Allergies and Adverse Reactions Name Reaction Notes Chantix bad dreams Keflex Plan of Treatment Planned Activity Comments Planned Date Planned Time Plan/Goal Complete blood count (CBC) with differential count 01/10/2017 12:00 AM Comprehensive metabolic panel 01/10/2017 12:00 AM CBC W/ AUTO DIFF (RFLX MAN DIFF IF IND). 10/16/2017 12:00 AM CRP 10/16/2017 12:00 AM ESR 10/16/2017 12:00 AM CMP 10/16/2017 12:00 AM Medications Active Name Start Date [...] days doxycycline monohydrate 150 mg oral capsule Name Start Date Expiration Date SIG Comments [...] oral route once daily for 30 days temazepam 15 mg oral capsule 06/16/2017 10/14/2017 take 1 capsule (15 mg) by oral [...] HC BMI BSA BMI Percentile O2 Sat(%) 10/16/2017 10:39:00 AM 98 mmHg 70 mmHg 83 bpm 18 rpm 97.9 F 136.125 lbs 68 in 20.6975 kg/m 1.7212 m 98 % 09/23/2017 9:07:00 AM 115 mmHg 79 mmHg 82 bpm 18 rpm 97.9 F 136 lbs 68 in 20.68 kg/m2 1.72 m2 100 % 09/08/2017 2:48:00 PM 100 mmHg [...] F 120.5 lbs 68 in 18.3218 kg/m 1.62 m2 Social History Name Description Comments [...] 07/25/2017 12:00 AM HEPATOBILIARY SYSTEM IMAGING Returned Results Summary Date and Description Results [...] 2017 11:13AM Dysphagia Jan 10 2017 11:13AM 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 Harjinder Salazar MD 09/23/[address] Harjinder Salazar MD 09/08/2017 Office visit Marlyn Hawthorne SURG RN 08/26/[address] Harjinder Salazar MD 07/24/2017 Office visit Christin Ramirez MD 05/13/2017 Office visit Christin Ramirez MD 03/14/2017 [facility] Samaniego MD 03/14/2017 Office visit Christin Ramirez MD 02/12/2017 Office visit Christin Ramirez MD 02/09/2017 [facility] Samaniego MD 02/08/2017 [facility] Wing Samaniego MD 02/03/2017 Office visit Christin Ramirez MD 01/24/2017 [facility] Matthias Thomas MD 01/24/2017 Office visit Etta Lowe SURG RN 01/10/2017 Office visit Christin Ramirez MD 01/05/2017 [facility] Wing Samaniego MD 12/12/2011 Nurse visit [...] 09/12/2011 Office visit Edson Dean MD 09/03/2011 [facility] Edson Dean MD 09/03/2011 [facility] Manjit Carey MD 09/03/2011 [facility] Edson Dean MD 08/22/2011 Office visit Edson Dean MD 08/05/2011 Office visit Kaylin Marx APRN
--- OUTSIDE RECORDS SUMMARY | 2018-10-30 00:40 | XMS REPORT ---
Author Harjinder Ahmadi [facility] Address [address] [place], [place] [address] Care Team Providers Care Rn Clinical Research Name Role Phone Harjinder Salazar PCP Harjinder [...] 3 times per day for 10 days temazepam 15 mg oral capsule 06/16/2017 10/14/2017 take 1 capsule (15 mg) by oral route once daily at bedtime as needed for 30 days nicotine 14 mg/24 hr transdermal patch 24 hour 09/23/2017 12/22/2017 apply 1 patch (14 mg) by transdermal route once daily for 30 days Name Start Date Expiration [...] 30 days tramadol 50 mg oral tablet 08/20/2017 09/19/2017 take 1 tablet by oral route every 8 hours for 30 days amoxicillin 500 mg oral tablet 08/28/2017 09/04/2017 take 1 tablet (500 mg) by oral route every 12 hours for 7 days clindamycin HCl 150 mg oral capsule 09/08/2017 09/15/2017 take 1 capsule by oral route every 6 hours for 7 days Discontinued Name Start [...] HC BMI BSA BMI Percentile O2 Sat(%) 09/23/2017 9:07:00 AM 115 mmHg 79 mmHg [...] 2017 11:13AM Dysphagia Jan 10 2017 11:13AM halfway (current) use of anticoagulants Jan 10 2017 [...] 11:44AM Tobacco dependence Sep 23 2017 9:11AM Payers Insurance Name Company Name Plan Name Plan Number Policy Number Policy Group Number Start Date Amerigroup - [place] Amer[employer] [place] [id number] N/A [employer] [place] Amer[employer] [place] [id number] N/A zzzCoventry - CMFHP Coventry -CMFHP [id number] N/A zzzCoventry - RHC - CMFHP Coventry - RHC - CMFHP [id number] N/A History of Encounters Visit Date Visit Type Provider 09/23/[address] Harjinder Salazar MD 09/08/2017 Office visit Marlyn Hawthorne PREMIX OPERATOR CONCENTRATE 08/26/[address] Harjinder Salazar MD 07/24/2017 Office visit Christin Ramirez MD 05/13/2017 Office visit Christin Ramirez MD 03/14/2017 [facility] Wing Samaniego MD 03/14/2017 Office visit Chrsitin Ramirez MD 02/12/2017 Office visit Christin Ramirez MD 02/09/2017 [facility] Wing Samaniego MD 02/08/2017 [facility] Wing Samaniego MD 02/03/2017 Office visit Christin Ramirez MD 01/24/2017 [facility] Matthias Thomas MD 01/24/2017 Office visit Etta Lowe PREMIX OPERATOR CONCENTRATE 01/10/2017 Office visit Christin Ramirez MD 01/05/2017 [facility] Wing Samaniego MD 12/12/2011 Nurse visit [...] 09/12/2011 Office visit Edson Dean MD 09/03/2011 [facility] Edson Dean MD 09/03/2011 [facility] Manjit Carey MD 09/03/2011 [facility] Edson Dean MD 08/22/2011 Office visit Edson Dean MD 08/05/2011 Office visit Kaylin Marx PREMIX OPERATOR CONCENTRATE
--- OUTSIDE RECORDS SUMMARY | 2018-10-30 00:41 | XMS REPORT ---
Author Author Christin Ramirez Organization [facility] Address [address] [place], [place] [address] Care Team Providers Care Table Keeper Name Role Phone Christin Ramirez PCP Christin Ramirez PreferredProvider Allergies and Adverse Reactions Name Reaction Notes Chantix bad dreams Plan of Treatment Planned Activity Comments Planned [...] 30 days tramadol 50 mg oral tablet 07/15/2017 08/14/2017 take 1 tablet by oral route every 8 hours for 30 days Name Start Date Expiration [...] by oral route daily for 30 days Problem List Description Status Onset Asthma Active Vital Signs Date Time BP-Sys(mm[Hg] BP-Mayra(mm[Hg]) HR(bpm) RR(rpm) Temp WT HT HC BMI BSA BMI Percentile O2 Sat(%) 07/24/2017 12:50:00 PM 106 mmHg 66 mmHg 66 bpm 16 rpm 98.2 F 147.125 lbs 68 in 22.3701 kg/m 1.7894 m 99 % 05/13/2017 10:51:00 AM 110 mmHg 74 mmHg 87 bpm 16 rpm 98.5 F 148.25 lbs 69 in 21.89 kg/m2 1.81 m2 97 % 03/14/2017 11:06:00 AM 98 mmHg 76 mmHg 108 bpm 16 rpm 97.7 F 134.25 lbs 68 in 20.4124 kg/m 1.7093 m 98 % 02/12/2017 11:04:00 AM 98 mmHg [...] 2017 11:13AM Dysphagia Jan 10 2017 11:13AM correction (current) use of anticoagulants Jan 10 2017 [...] 12:57PM RUQ pain Jul 24 2017 12:57PM Payers Insurance Name Company Name Plan Name Plan Number Policy Number Policy Group Number Start Date Amer[employer] - [place] Amer[employer] [place] [id number] N/A [employer] [place] [employer] [place] [id number] N/A zzzCoventry - CMFHP Coventry -CMFHP [id number] N/A zzzCoventry - RHC - CMFHP Coventry - RHC - CMFHP [id number] N/A History of Encounters Visit Date Visit Type Provider 07/24/2017 Office visit Christin Ramirez MD 05/13/2017 Office visit Christin Ramirez MD 03/14/2017 [facility] Wing Samaniego MD 03/14/2017 Office visit Christin Ramirez MD 02/12/2017 Office visit Christin Ramirez MD 02/09/2017 [facility] Wing Samaniego MD 02/08/2017 [facility] Wing Samaniego MD 02/03/2017 Office visit Christin Ramirez MD 01/24/2017 [facility] Matthias Thomas MD 01/24/2017 Office visit Etta Lowe APRN 01/10/2017 Office visit Christin Ramirez MD 01/05/2017 [facility] Wing Samaniego MD 12/12/2011 Nurse [...] 09/12/2011 Office visit Edson Dean MD 09/03/2011 [facility] Edson Dean MD 09/03/2011 [facility] Manjit Carey MD 09/03/2011 [facility] Edson Dean MD 08/22/2011 Office visit Edson Dean MD 08/05/2011 Office visit Kaylin Marx APRN
--- OUTSIDE RECORDS SUMMARY | 2018-10-30 00:42 | XMS REPORT ---
Author Author Marlyn Hawthorne [facility] Address [address] [place], [place] [address] Care Team Providers Care Environmental Aid Name Role Phone Marlyn Hawthorne PCP Harjinder [...] route every 8 hours for 30 days nicotine 14 mg/24 hr transdermal patch 24 hour 08/26/2017 10/07/2017 apply 1 patch (14 mg) by transdermal route once daily for 2 weeks clindamycin HCl 150 mg oral capsule 09/08/2017 09/15/2017 take 1 capsule by oral route every 6 hours for 7 days Name Start Date [...] HC BMI BSA BMI Percentile O2 Sat(%) 09/08/2017 2:48:00 PM 100 mmHg 58 mmHg [...] 2017 11:13AM Dysphagia Jan 10 2017 11:13AM 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 Jan 10 2017 [...] doctor, encounter for Aug 26 2017 11:44AM Payers Insurance Name Company Name Plan Name Plan Number Policy Number Policy Group Number Start Date Amerigroup - RHC - [place] State Plan Amerigroup - [facility] State Plan [id number] N/A [facility] State Plan [id number] N/A zzzCoventry - CMFHP Coventry -CMFHP [id number] N/A zzzCoventry - RHC - CMFHP Coventry - RHC - CMFHP [id number] N/A History of Encounters Visit Date Visit Type Provider 09/08/2017 Office visit Marlyn Hawthorne SHIPPING TEAM LEADER 08/26/[address] Harjinder Salazar MD 07/24/2017 Office visit Christin Ramirez MD 05/13/2017 Office visit Christin Ramirez MD 03/14/2017 [facility] Aster Samaniego MD 03/14/2017 Office visit Christin Ramirez MD 02/12/2017 Office visit Christin Ramirez MD 02/09/2017 [facility] Wing Samaniego MD 02/08/2017 [facility] Wing Samaniego MD 02/03/2017 Office visit Christin Ramirez MD 01/24/2017 [facility] Matthias Thomas MD 01/24/2017 Office visit Etta Lowe APRN 01/10/2017 Office visit Christin Ramirez MD 01/05/2017 [facility] Wing Samaniego MD 12/12/2011 Nurse visit Edson [...] 09/12/2011 Office visit Edson Dean MD 09/03/2011 [facility] Edson Dean MD 09/03/2011 [facility] Manjit Carey MD 09/03/2011 [facility] Edson Dean MD 08/22/2011 Office visit Edson eDan MD 08/05/2011 Office visit Kaylin Marx APRN
--- OUTSIDE RECORDS SUMMARY | 2018-10-30 00:42 | XMS REPORT ---
Author Author Christin Ramirez Organization [facility] Address [address] [place], [place] [address] Care Team Providers Care Television Inspector Name Role Phone Christin Ramirez PCP Christin [...] 2017 11:13AM Dysphagia Jan 10 2017 11:13AM [facility] (current) use of anticoagulants Jan 10 2017 [...] Plan Amer[employer] - [place] [id number] N/[place] [employer] [place] [employer] [place] [id number] N/A zzzCoventry - CMFHP Coventry -CMFHP [id number] N/A zzzCoventry - RHC - CMFHP Coventry - RHC - CMFHP [id number] N/A History of Encounters Visit Date Visit Type Provider 07/24/2017 Office visit Christin Ramirez MD 05/13/2017 Office visit Christin Ramirez MD 03/14/2017 [facility] Wing Samaniego MD 03/14/2017 Office visit Christin Ramirez MD 02/12/2017 Office visit Christin Ramirez MD 02/09/2017 [facility] Wing Samaniego MD 02/08/2017 [facility] Wing Samaniego MD 02/03/2017 Office visit Christin Ramirez MD 01/24/2017 [facility] Matthias Thomas MD 01/24/2017 Office visit Etta Lowe APRN 01/10/2017 Office visit Christin Ramirez MD 01/05/2017 [facility] Wing Samaniego MD 12/12/2011 Nurse visit [...] 09/12/2011 Office visit Edson Dean MD 09/03/2011 [facility] Edson Dean MD 09/03/2011 [facility] Manjit Carey MD 09/03/2011 [facility] Edson Dean MD 08/22/2011 Office visit Edson Dean MD 08/05/2011 Office visit Kaylin Marx APRN
--- OUTSIDE RECORDS SUMMARY | 2018-10-30 00:43 | XMS REPORT ---
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 Harjinder Salazar MD 07/24/2017 Office visit Christin Ramirez MD 05/13/2017 Office visit Christin Ramirez MD 03/14/2017 [facility] Aster Samaniego MD 03/14/2017 Office visit Christin Ramirez MD 02/12/2017 Office visit Christin Ramirez MD 02/09/2017 [facility] Wing Samaniego MD 02/08/2017 [facility] Wing Samaniego MD 02/03/2017 Office visit Christin Ramirez MD 01/24/2017 [facility] Matthias Thomas MD 01/24/2017 Office visit Etta Lowe APRN 01/10/2017 Office visit Christin Ramirez MD 01/05/2017 [facility] Wing Samaniego MD 12/12/2011 Nurse visit Edson [...] 09/12/2011 Office visit Edson Dean MD 09/03/2011 [facility] Edson Dean MD 09/03/2011 [facility] Manjit Carey MD 09/03/2011 [facility] Edson Dean MD 08/22/2011 Office visit Edson Dean MD 08/05/2011 Office visit Kaylin Marx APRN
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
--- OUTSIDE RECORDS SUMMARY | 2018-10-30 00:44 | XMS REPORT ---
Author Author Christin Ramirez Organization [facility] Address [address] [place], [place] [id number] Care Team Providers Care Food And Beverage Manager Name Role Phone Christin Ramirez PCP Christin Ramirez PreferredProvider Allergies and Adverse Reactions Name Reaction Notes Chantix bad dreams Plan of Treatment Planned Activity Comments Planned Date Planned Time Plan/Goal Complete blood count (CBC) with differential count 01/10/2017 12:00 AM Comprehensive metabolic panel 01/10/2017 12:00 AM NM HEPATOBILIARY SCAN 07/25/2017 12:00 AM Medications Active Name Start Date [...] 07/24/2017 12:00 AM COMPREHEN METABOLIC PANEL Returned Results Summary Date and Description Results [...] 2017 11:13AM Dysphagia Jan 10 2017 11:13AM 

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
--- OUTSIDE RECORDS SUMMARY | 2018-10-30 00:45 | XMS REPORT | Continuity of Care Document ---
Author Organization Unknown Address Unknown Phone Unavailable Allergies Active Description Code Type Severity Reaction Onset Reported/Identified Relationship to Patient Clinical Status Yes Chantix Drug N/A N/A Yes Keflex Drug N/A N/A Yes No Known Medication Allergies Drug N/A N/A Yes No Known Allergies [id number] N/A N/A Yes No Known Drug Allergies [id number] N/A N/A Yes No Known Drug Allergies [id number] N/A N/A Yes No Known Drug Allergies [id number] Drug Allergy Unknown N/A 06/18/2011 Medications There is no data. Problems Date [...] Chronic systolic (congestive) heart failure 01/27/2017 S [id number] Aortic ectasia, unspecified site 01/27/2017 P J189 Pneumonia, unspecified organism 01/27/2017 S J3489 Other specified disorders of nose and nasal sinuses 01/27/2017 S J3800 Paralysis of vocal cords and larynx, unspecified 01/27/2017 S X42563 Cellulitis of chest wall 01/27/2017 S R1310 Dysphagia, unspecified 01/27/2017 S [id number] Unspecified injury of neck, sequela 01/27/2017 S [id number] Infection following a procedure, initial encounter 01/27/2017 S [id number] Exposure to other specified factors, sequela 01/27/2017 [...] of prosthetic heart valve 03/07/2017 P Z7901 sales support manager (current) use of anticoagulants 03/13/2017 P Z7901 penitentiary (current) use of anticoagulants 03/18/2017 P Z7901 sales support manager (current) use of anticoagulants 03/19/2017 S B27354 Nicotine dependence, cigarettes, uncomplicated 03/19/2017 P R0789 Other chest pain 03/19/2017 S Z7901 penitentiary (current) use of anticoagulants 03/19/2017 S Z7982 sales support manager (current) use of aspirin 03/19/2017 S S95900 Other cocktail lounge manager (current) drug therapy 03/19/2017 S Z952 Presence of prosthetic heart valve 03/19/2017 P R0789 Other chest pain 03/19/2017 S Z720 Tobacco use 03/21/2017 P E46 Unspecified protein- calorie malnutrition 03/21/2017 S R8290 Unspecified abnormal findings in urine 03/26/2017 S X97202 Nicotine dependence, cigarettes, uncomplicated 03/26/2017 P K625 Hemorrhage of anus and rectum 03/26/2017 S Z7901 penitentiary (current) use of anticoagulants 03/26/2017 S Z7982 penitentiary (current) use of aspirin 03/26/2017 S E33563 Other fci (current) drug therapy 03/26/2017 S Z952 Presence of prosthetic heart valve 03/26/2017 S D689 Coagulation defect, unspecified 03/26/2017 P K625 Hemorrhage of anus and rectum 03/26/2017 S Z720 Tobacco use 03/31/2017 P Z7901 penitentiary (current) use of anticoagulants 04/28/2017 P I5021 Acute [...] P I5021 Acute systolic (congestive) heart failure 06/23/2017 SAHIL MCMAHON APRN Ot N39.0 URINARY TRACT INFECTION, SITE NOT SPECIF 06/23/2017 SAHIL MCMAHON APRN Ot R07.89 OTHER CHEST PAIN 06/23/2017 SAHIL MCMAHON APRN Ot Z79.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 06/23/2017 SAHIL MCMAHON APRN Ot Z95.2 PRESENCE OF PROSTHETIC HEART VALVE 06/25/2017 SAHIL MCMAHON MANAGER FORENSIC Ot N39.0 URINARY TRACT INFECTION, SITE NOT SPECIF 06/25/2017 SAHIL MCMAHON MANAGER FORENSIC Ot R07.89 OTHER CHEST PAIN 06/25/2017 SAHIL MCMAHON MANAGER FORENSIC Ot Z79.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 06/25/2017 SAHIL MCMAHON MANAGER FORENSIC Ot Z95.2 PRESENCE OF PROSTHETIC HEART VALVE 07/21/2017 P I5021 Acute systolic (congestive) heart failure 07/21/2017 P I5021 Acute systolic (congestive) heart failure 07/21/2017 P I5021 Acute systolic (congestive) heart failure 07/21/2017 P I5021 Acute systolic (congestive) heart failure 07/24/2017 P I5021 Acute systolic (congestive) heart failure 07/24/2017 P I5021 Acute systolic (congestive) heart failure 07/28/2017 P I5021 Acute systolic (congestive) heart failure 07/28/2017 P I5021 Acute systolic (congestive) heart failure 08/04/2017 P I5021 Acute systolic (congestive) heart failure 08/04/2017 P I5021 Acute systolic (congestive) heart failure 08/04/2017 P I5021 Acute systolic (congestive) heart failure 08/11/2017 P I5021 Acute systolic (congestive) heart failure 08/11/2017 P I5021 Acute systolic (congestive) heart failure 08/21/2017 P I5021 Acute systolic (congestive) heart failure 08/21/2017 P I5021 Acute systolic (congestive) heart failure 08/25/2017 P I5021 Acute systolic (congestive) heart failure 08/25/2017 P I5021 Acute systolic (congestive) heart failure 08/25/2017 P I5021 Acute systolic (congestive) heart failure 09/08/2017 P I5021 Acute systolic (congestive) heart failure 09/08/2017 P I5021 Acute systolic (congestive) heart failure 09/22/2017 P I5021 Acute systolic (congestive) heart failure 09/22/2017 P I5021 Acute systolic (congestive) heart failure 09/29/2017 P I5021 Acute systolic (congestive) heart failure 09/29/2017 P I5021 Acute systolic (congestive) heart failure 10/02/2017 P I5021 Acute systolic (congestive) heart failure 10/02/2017 P I5021 Acute systolic (congestive) heart failure 10/06/2017 P I5021 Acute systolic (congestive) heart failure 10/06/2017 P I5021 Acute systolic (congestive) heart failure 10/13/2017 P I5021 Acute systolic (congestive) heart failure 10/13/2017 P I5021 Acute systolic (congestive) heart failure 10/30/2017 P I5021 Acute systolic (congestive) heart failure 10/30/2017 P I5021 Acute systolic (congestive) heart failure 10/30/2017 P I5021 Acute systolic (congestive) heart failure 03/10/2018 S [id number] Nicotine dependence, cigarettes, uncomplicated 03/10/2018 S R05 Cough 03/10/2018 P R0789 Other chest pain 03/10/2018 S Z7901 sales support manager (current) use of anticoagulants 03/10/2018 S T67200 Other cocktail lounge manager (current) drug therapy 03/10/2018 S Z955 Presence of coronary angioplasty implant and graft 03/11/2018 S C51134 Nicotine dependence, cigarettes, uncomplicated 03/11/2018 P K44354 Migraine, unspecified, not intractable, without status migrainosus 03/11/2018 S R0789 Other chest pain 03/11/2018 S R110 Nausea 03/11/2018 S R55 Syncope and collapse 03/11/2018 S Z7901 penitentiary (current) use of anticoagulants 03/11/2018 S Y65178 Other cocktail lounge manager (current) drug therapy Procedures Code Description [place] [address] XRAY CERVICAL SPINE MIN 4 VIEWS 01/14/2014 Results Test Result Range Procalcitonin - 01/24/17 19:40 Procalcitonin 0.03 ng/mL 0.00-0.08 Complete blood count (CBC) with automated white blood cell (WBC) differential - 06/23/17 19:05 Blood leukocytes automated count (number/volume) 7.2 10*3/uL 4.3-11.0 Blood erythrocytes automated count (number/volume) 4.41 10*6/uL 4.35-5.85 Venous blood hemoglobin measurement (mass/volume) 12.8 g/dL 11.5-16.0 Blood hematocrit (volume fraction) 39 % 35-52 Automated erythrocyte mean corpuscular volume 89 [foz_us] 80-99 Automated erythrocyte mean corpuscular hemoglobin (mass per erythrocyte) 29 pg 25-34 Automated erythrocyte mean corpuscular hemoglobin concentration measurement (mass/volume) 33 g/dL 32-36 Automated erythrocyte distribution width ratio 14.1 % 10.0- 14.5 Automated blood platelet count (count/volume) 427 10*3/uL 130-400 Automated blood platelet mean volume measurement 9.1 [foz_us] 7.4-10.4 Automated blood neutrophils/100 leukocytes 67 % 42-75 Automated blood lymphocytes/100 leukocytes 21 % 12-44 Blood monocytes/100 leukocytes 10 % 0-12 Automated blood eosinophils/100 leukocytes 2 % 0-10 Automated blood basophils/100 leukocytes 1 % 0-10 Blood neutrophils automated count (number/volume) 4.8 10*3 1.8-7.8 Blood lymphocytes automated count (number/volume) 1.5 10*3 1.0-4.0 Blood monocytes automated count (number/volume) 0.7 10*3 0.0- 1.0 Automated eosinophil count 0.1 10*3/uL 0.0-0.3 Automated blood basophil count (count/volume) 0.1 10*3/uL 0.0-0.1 PT panel in platelet poor plasma by coagulation assay - 06/23/17 19:05 Prothrombin time (PT) in platelet poor plasma by coagulation assay 27.1 s 12.2-14.7 INR in platelet poor plasma or blood by coagulation assay 2.5 0.8-1.4 Activated partial thromboplastin time (aPTT) in platelet poor plasma bycoagulation assay - 06/23/17 19:05 Activated partial thromboplastin time (aPTT) in platelet poor plasma bycoagulation assay 38 s 24-35 Fibrin D-dimer FEU measurement in platelet poor plasma (mass/volume) - 06/23/17 19:05 Fibrin D-dimer FEU measurement in platelet poor plasma (mass/volume) < ug/mL 0.00-0.49 Comprehensive metabolic panel - 06/23/17 19:05 Serum or plasma sodium measurement (moles/volume) 137 mmol/L 135-145 Serum or plasma potassium measurement (moles/volume) 3.9 mmol/L 3.6-5.0 Serum or plasma chloride measurement (moles/volume) 104 mmol/L 98-107 Carbon dioxide 25 mmol/L 21-32 Serum or plasma anion gap determination (moles/volume) 8 mmol/L 5-14 Serum or plasma urea nitrogen measurement (mass/volume) 15 mg/dL 7-18 Serum or plasma creatinine measurement (mass/volume) 1.01 mg/dL 0.60-1.30 Serum or plasma urea nitrogen/creatinine mass ratio 15 NRG Serum or plasma creatinine measurement with calculation of estimated glomerular filtration rate > NRG Serum or plasma glucose measurement (mass/volume) 128 mg/dL 70-105 Serum or plasma calcium measurement (mass/volume) 9.6 mg/dL 8.5-10.1 Serum or plasma total bilirubin measurement (mass/volume) 0.3 mg/dL 0.1-1.0 Serum or plasma alkaline phosphatase measurement (enzymatic activity/volume) 79 U/L 40-136 Serum or plasma aspartate aminotransferase measurement (enzymatic activity/volume) 18 U/L 5-34 Serum or plasma alanine aminotransferase measurement (enzymatic activity/volume) 27 U/L 0-55 Serum or plasma protein measurement (mass/volume) 8.3 g/dL 6.4-8.2 Serum or plasma albumin measurement (mass/volume) 4.5 g/dL 3.2-4.5 Magnesium - 06/23/17 19:05 Magnesium 2.2 mg/dL 1.8-2.4 Serum or plasma choriogonadotropin ( test) detection - 06/23/17 19:05 Serum or plasma choriogonadotropin ( test) detection NEGATIVE NEGATIVE Serum or plasma troponin i.cardiac measurement (mass/volume) - 06/23/17 19:05 Serum or plasma troponin i.cardiac measurement (mass/volume) < ng/mL <0.30 Serum or plasma lithium measurement (moles/volume) - 06/23/17 19:05 BNP level 56.6 pg/mL <100.0 Myoglobin, serum - 06/23/17 19:05 Myoglobin, serum 17.5 ng/mL 10.0-92.0 Urine drug screening test - 06/23/17 19:50 Urine phencyclidine detection by screening method NEGATIVE NEGATIVE Urine benzodiazepines detection by screening method POSITIVE NEGATIVE Urine cocaine detection NEGATIVE NEGATIVE Urine amphetamines detection by screening method NEGATIVE NEGATIVE Urine methamphetamine detection by screening method NEGATIVE NEGATIVE Urine cannabinoids detection by screening method NEGATIVE NEGATIVE Urine opiates detection by screening method NEGATIVE NEGATIVE Urine barbiturates detection NEGATIVE NEGATIVE Screening urine tricyclic antidepressants detection NEGATIVE NEGATIVE Urine methadone detection by screening method NEGATIVE NEGATIVE Urine oxycodone detection NEGATIVE NEGATIVE Urine propoxyphene detection NEGATIVE NEGATIVE Complete urinalysis with reflex to culture - 06/23/17 19:50 Urine color determination YELLOW NRG Urine clarity determination CLEAR NRG Urine pH measurement by test strip 6 5-9 Specific gravity of urine by test strip 1.020 1.016-1.022 Urine protein assay by test strip, semi-quantitative 1+ NEGATIVE Urine glucose detection by automated test strip NEGATIVE NEGATIVE Erythrocytes detection in urine sediment by light microscopy 2+ NEGATIVE Urine ketones detection by automated test strip 1+ NEGATIVE Urine nitrite detection by test strip NEGATIVE NEGATIVE Urine total bilirubin detection by test strip NEGATIVE NEGATIVE Urine urobilinogen measurement by automated test strip (mass/volume) 1 mg/dL NORMAL Urine leukocyte esterase detection by dipstick 1+ NEGATIVE Automated urine sediment erythrocyte count by microscopy (number/high power field) [HPF] NRG Automated urine sediment leukocyte count by microscopy (number/high power field) [HPF] NRG Bacteria detection in urine sediment by light microscopy LARGE NRG Squamous epithelial cells detection in urine sediment by light microscopy 25-50 NRG Crystals detection in urine sediment by light microscopy NONE NRG Casts detection in urine sediment by light microscopy NONE NRG Mucus detection in urine sediment by light microscopy NEGATIVE NRG Complete urinalysis with reflex to culture YES NRG Bacterial urine culture - 06/23/17 19:50 Bacterial urine culture [id number] NRG COLONY COUNT >100,000/ML NRG FTX;REPORTABLE SENSITIVITY REPORTED AT 0736, 4-4-48 NRG URINE CULTURE RESULTS PLUS NR Bacterial susceptibility panel - 06/23/17 19:50 Gentamicin susceptibility test by minimum inhibitory concentration <= NRG Trimethoprim/sulfamethoxazole susceptibility test by minimum inhibitoryconcentration S NRG Ampicillin susceptibility test by minimum inhibitory concentration <= NRG Tobramycin susceptibility test by minimum inhibitory concentration <= NRG Cefazolin susceptibility test by minimum inhibitory concentration <= NRG Ceftriaxone susceptibility test by minimum inhibitory concentration <= NRG Ampicillin/sulbactam susceptibility test by minimum inhibitory concentration <= NRG Piperacillin/tazobactam susceptibility test by minimum inhibitory concentration S NRG Ciprofloxacin susceptibility test by minimum inhibitory concentration >= NRG Meropenem susceptibility test by minimum inhibitory concentration <= NRG Nitrofurantoin susceptibility test by minimum inhibitory concentration <= NRG Aztreonam susceptibility test by minimum inhibitory concentration <= NRG Extended spectrum beta lactamase (ESBL) producing bacteria susceptibility test by minimum inhibitory concentration - NRG Complete blood count (CBC) with automated white blood cell (WBC) differential - 10/29/18 15:20 Blood leukocytes automated count (number/volume) 11.4 10*3/uL 4.3-11.0 Blood erythrocytes automated count (number/volume) 4.61 10*6/uL 4.35-5.85 Venous blood hemoglobin measurement (mass/volume) 13.4 g/dL 11.5-16.0 Blood hematocrit (volume fraction) 41 % 35-52 Automated erythrocyte mean corpuscular volume 89 [foz_us] 80-99 Automated erythrocyte mean corpuscular hemoglobin (mass per erythrocyte) 29 pg 25-34 Automated erythrocyte mean corpuscular hemoglobin concentration measurement (mass/volume) 33 g/dL 32-36 Automated erythrocyte distribution width ratio 14.9 % 10.0- 14.5 Automated blood platelet count (count/volume) 316 10*3/uL 130-400 Automated blood platelet mean volume measurement 9.0 [foz_us] 7.4-10.4 Automated blood neutrophils/100 leukocytes 82 % 42-75 Automated blood lymphocytes/100 leukocytes 9 % 12-44 Blood monocytes/100 leukocytes 7 % 0-12 Automated blood eosinophils/100 leukocytes 1 % 0-10 Automated blood basophils/100 leukocytes 0 % 0-10 Blood neutrophils automated count (number/volume) 9.4 10*3 1.8-7.8 Blood lymphocytes automated count (number/volume) 1.1 10*3 1.0-4.0 Blood monocytes automated count (number/volume) 0.8 10*3 0.0- 1.0 Automated eosinophil count 0.1 10*3/uL 0.0-0.3 Automated blood basophil count (count/volume) 0.1 10*3/uL 0.0-0.1 Comprehensive metabolic panel - 10/29/18 15:20 Serum or plasma sodium measurement (moles/volume) 139 mmol/L 135-145 Serum or plasma potassium measurement (moles/volume) 3.5 mmol/L 3.6-5.0 Serum or plasma chloride measurement (moles/volume) 106 mmol/L 98-107 Carbon dioxide 27 mmol/L 21-32 Serum or plasma anion gap determination (moles/volume) 6 mmol/L 5-14 Serum or plasma urea nitrogen measurement (mass/volume) 10 mg/dL 7-18 Serum or plasma creatinine measurement (mass/volume) 0.93 mg/dL 0.60-1.30 Serum or plasma urea nitrogen/creatinine mass ratio 11 NRG Serum or plasma creatinine measurement with calculation of estimated glomerular filtration rate > NRG Serum or plasma glucose measurement (mass/volume) 98 mg/dL 70-105 Serum or plasma calcium measurement (mass/volume) 9.5 mg/dL 8.5-10.1 Serum or plasma total bilirubin measurement (mass/volume) 0.7 mg/dL 0.1-1.0 Serum or plasma alkaline phosphatase measurement (enzymatic activity/volume) 70 U/L 40-136 Serum or plasma aspartate aminotransferase measurement (enzymatic activity/volume) 17 U/L 5-34 Serum or plasma alanine aminotransferase measurement (enzymatic activity/volume) 19 U/L 0-55 Serum or plasma protein measurement (mass/volume) 7.3 g/dL 6.4-8.2 Serum or plasma albumin measurement (mass/volume) 4.1 g/dL 3.2-4.5 CALCIUM CORRECTED 9.4 mg/dL 8.5-10.1 Magnesium - 10/29/18 15:20 Magnesium 2.0 mg/dL 1.8-2.4 PT panel in platelet poor plasma by coagulation assay - 10/29/18 15:20 Prothrombin time (PT) in platelet poor plasma by coagulation assay 13.3 s 12.2-14.7 INR in platelet poor plasma or blood by coagulation assay 1.0 0.8-1.4 Activated partial thromboplastin time (aPTT) in platelet poor plasma bycoagulation assay - 10/29/18 15:20 Activated partial thromboplastin time (aPTT) in platelet poor plasma bycoagulation assay 29 s 24-35 Serum or plasma troponin i.cardiac measurement (mass/volume) - 10/29/18 15:20 Serum or plasma troponin i.cardiac measurement (mass/volume) < ng/mL <0.028 Myoglobin, serum - 10/29/18 15:20 Myoglobin, serum 225.7 ng/mL 10.0-92.0 Encounters ACCT No. Visit Date/Time Discharge Status Pt. Type Provider Facility Loc./Unit Complaint [id number] 04/03/2018 17:24:54 04/03/2018 23:59:59 CLS Outpatient Wing Samaniego William [id number] 04/03/2018 16:55:53 04/03/2018 23:59:59 CLS Outpatient Wing Samaniego William [id number] 03/30/2018 18:49:31 03/30/2018 23:59:59 CLS Outpatient tEta Lowe [id number] 01/09/2018 16:46:20 01/09/2018 23:59:59 CLS Outpatient Marlyn Hawthorne [id number] 12/11/2017 12:20:20 12/11/2017 23:59:59 CLS Outpatient Wing Samaniego William [id number] 10/16/2017 11:34:02 10/16/2017 23:59:59 CLS Outpatient Harjinder Salazar [id number] 09/23/2017 10:04:14 09/23/2017 23:59:59 CLS Outpatient Harjinder Salazar [id number] 09/08/2017 15:43:25 09/08/2017 23:59:59 CLS Outpatient Marlyn Hawthorne [id number] 08/26/2017 12:00:47 08/26/2017 23:59:59 CLS Outpatient Harjinder Salazar [id number] 07/24/2017 13:43:21 07/24/2017 23:59:59 CLS Outpatient Ashley Christin [id number] 05/13/2017 11:41:16 05/13/2017 23:59:59 CLS Outpatient Christin Ramirez [id number] 04/30/2017 15:15:40 04/30/2017 23:59:59 CLS Outpatient AdenWing [id number] 03/14/2017 11:49:01 03/14/2017 23:59:59 CLS Outpatient Ashley Christin [id number] 03/11/2017 17:01:26 03/11/2017 23:59:59 CLS Outpatient AdenWing [id number] 03/11/2017 16:56:42 03/11/2017 23:59:59 CLS Outpatient AdenWing [id number] 02/21/2017 16:21:38 02/21/2017 23:59:59 CLS Outpatient AdenWing [id number] 02/12/2017 11:55:20 02/12/2017 23:59:59 CLS Outpatient Christin Ramirez [id number] 02/03/2017 15:26:48 02/03/2017 23:59:59 CLS Outpatient Christin Ramirez [id number] 02/03/2017 14:35:26 02/03/2017 23:59:59 CLS Outpatient Evelio Hernandez [id number] 01/24/2017 12:34:48 01/24/2017 23:59:59 CLS Outpatient Etta Lowe [id number] 01/10/2017 11:57:15 01/10/2017 23:59:59 CLS Outpatient Christin Ramirez [id number] 03/11/2018 17:45:42 Document Registration [id number] 03/11/2018 17:27:41 Document Registration [id number] 03/10/2018 08:57:17 Document Registration [id number] 03/10/2018 08:47:49 Document Registration [id number] 01/04/2018 13:38:02 Document Registration [id number] 01/04/2018 13:29:25 Document Registration [id number] 10/24/2017 12:28:34 Document Registration [id number] 10/24/2017 07:41:38 Document Registration [id number] 10/23/2017 07:17:00 Document Registration [id number] 10/23/2017 07:10:24 Document Registration [id number] 10/16/2017 12:04:28 Document Registration [id number] 07/25/2017 13:18:13 Document Registration [id number] 07/25/2017 13:06:03 Document Registration [id number] 07/24/2017 13:17:38 Document Registration [id number] 04/23/2017 14:16:11 Document Registration [id number] 04/11/2017 11:09:32 Document Registration [id number] 04/08/2017 14:41:17 Document Registration [id number] 04/04/2017 13:49:02 Document Registration [id number] 03/26/2017 18:53:31 Document Registration [id number] 03/26/2017 15:01:45 Document Registration [id number] 03/21/2017 14:35:26 Document Registration [id number] 03/19/2017 12:40:15 Document Registration [id number] 03/19/2017 12:35:14 Document Registration [id number] 03/18/2017 13:14:42 Document Registration [id number] 03/18/2017 10:26:14 Document Registration [id number] 03/13/2017 14:05:06 Document Registration [id number] 03/07/2017 14:44:44 Document Registration [id number] 03/03/2017 14:21:56 Document Registration [id number] 02/28/2017 16:18:35 Document Registration [id number] 02/27/2017 09:04:41 Document Registration [id number] 02/24/2017 12:42:12 Document Registration [id number] 02/17/2017 16:15:35 Document Registration [id number] 02/12/2017 12:08:00 Document Registration [id number] 02/10/2017 15:09:08 Document Registration [id number] 02/10/2017 09:15:59 Document Registration [id number] 02/09/2017 14:45:01 Document Registration [id number] 02/09/2017 14:30:31 Document Registration [id number] 02/08/2017 19:24:28 Document Registration [id number] 02/08/2017 19:04:05 Document Registration [id number] 02/07/2017 14:05:10 Document Registration [id number] 02/03/2017 15:42:40 Document Registration [id number] 01/30/2017 13:10:13 Document Registration [id number] 01/30/2017 09:08:50 Document Registration [id number] 01/27/2017 08:39:57 Document Registration [id number] 01/24/2017 15:17:58 Document Registration [id number] 01/24/2017 13:04:36 Document Registration [id number] 01/22/2017 14:00:37 Document Registration [id number] 01/16/2017 10:51:03 Document Registration [id number] 01/13/2017 16:52:56 Document Registration [id number] 01/08/2017 12:39:35 Document Registration [id number] 01/06/2017 13:10:46 Document Registration [id number] 01/05/2017 09:41:19 Document Registration [id number] 01/05/2017 09:27:26 Document Registration [id number] 01/03/2017 12:08:53 Document Registration [id number] 08/26/2016 20:49:48 ACT Document Registration [id number] 03/31/2017 10:00:00 Document Registration [id number] 06/23/2017 18:56:00 06/23/2017 20:43:00 DIS Emergency SAHIL MCMAHON MANAGER FORENSIC [facility] ER CHEST PAIN [id number] 10/29/2018 15:33:00 Document Registration [id number] 03/01/2018 18:32:00 03/01/2018 21:25:00 DIS Emergency Hattie Black [facility] ED cp [id number] 01/05/2018 17:39:00 01/05/2018 23:59:59 DIS Outpatient ARTIS FERNANDEZ [facility] [id number] 01/05/2018 18:40:00 01/05/2018 20:57:00 DIS Emergency ARTIS FERNANDEZ [facility] ED ER [id number] 12/19/2017 21:19:00 12/20/2017 00:38:00 DIS Emergency NA VELEZ [facility] ED ED Visit [id number] 12/19/2017 20:22:00 12/19/2017 23:59:59 DIS Outpatient ROSE MARIE CARCAMO [facility] [id number] 04/28/2017 20:29:00 04/28/2017 21:46:00 DIS Emergency TOMA VEGA [facility] ED ED visit [id number] 03/04/2017 12:54:48 03/04/2017 13:30:00 DIS R Aden Vega [facility] AVR [id number] 02/10/2017 14:37:00 02/10/2017 16:55:00 DIS Emergency ARTIS FERNANDEZ [facility] ED chest pa;in [id number] 02/09/2017 23:00:00 02/09/2017 23:59:59 DIS Outpatient TOMA COLLINS [facility] [id number] 10/30/2016 03:56:00 10/30/2016 06:04:00 DIS Emergency TOMA COLLINS [facility] ED back pain chest pain SOB [id number] 10/03/2016 18:48:00 10/03/2016 22:10:00 DIS Emergency NA VELEZ [facility] chest pain [id number] 07/31/2016 15:03:33 07/31/2016 23:59:59 CLS Outpatient Albert Hernandez [facility] RT ekg [id number] 07/13/2016 16:22:00 07/14/2016 12:45:00 DIS V NA MICHELLE [facility] OBS Abdominal pain, cardiomyopathy [id number] 01/30/2017 11:05:11 ACT Unknown [id number] 01/31/2015 14:41:54 01/31/2015 14:41:54 DIS Outpatient [id number] 01/28/2017 15:06:00 Document Registration [id number] 01/26/2014 14:46:00 01/26/2014 23:59:59 CLS Outpatient ALEJANDRA MADDOX MD [id number] 01/19/2014 14:50:00 01/19/2014 23:59:59 CLS Outpatient ALEJANDRA MADDOX MD [id number] 01/14/2014 14:09:00 01/14/2014 23:59:59 CLS Outpatient ALEJANDRA MADDOX MD
== END 2018-10-29 16:33 | disposition home or self-care (01) ==
LOC: EDUNIT# 15:08 → ER 15:11
DX: R07.89 Other chest pain (principal); I10 Essential (primary) hypertension; F17.210 Nicotine dependence, cigarettes, uncomplicated; Z95.2 Presence of prosthetic heart valve
CPT/HCPCS: 36415; 71046; 80053; 83735; 83874; 84484; 85025; 85610; 85730; 93005; 93041

== ENCOUNTER 2018-11-25 10:34 | Emergency (ER) | payer SELFPAY ==
--- NOTE | 2018-11-25 11:27 | NUR ---
ATTEMPT TO CALL PT TO TRIAGE ET PT NOT IN WAITING ROOM. SOMEONE IN WAITING ROOM STATES "SHE DASHED OUT".
== END 2018-11-25 11:27 | disposition left against medical advice (07) ==
LOC: EDUNIT# 10:34 → ER 10:35
DX: R07.81 Pleurodynia (principal)

== ENCOUNTER 2018-11-27 13:25 | Emergency (ER) | payer SELFPAY ==
[~2018-11-27] VITALS: Ht 175.3 cm; Wt 52.2 kg
[2018-11-27 13:47] VITALS: BP 163/83
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
[2018-11-27 14:17] LABS: BASOPHILS # (AUTO) 0.1 10^3/uL (0.0-0.1); BASOPHILS % (AUTO) 1 % (0-10); EOSINOPHILS # (AUTO) 0.1 10^3/uL (0.0-0.3); EOSINOPHILS % (AUTO) 3 % (0-10); HEMATOCRIT 38 % (35-52); HEMOGLOBIN 12.2 G/DL (11.5-16.0); LYMPHOCYTES # (AUTO) 0.9 X 10^3 (1.0-4.0); LYMPHOCYTES % (AUTO) 17 % (12-44); MEAN CORPUSCULAR HEMOGLOBIN 29 PG (25-34); MEAN CORPUSCULAR HGB CONC 32 G/DL (32-36); MEAN CORPUSCULAR VOLUME 92 FL (80-99); MEAN PLATELET VOLUME 9.1 FL (7.4-10.4); MONOCYTES # (AUTO) 0.5 X 10^3 (0.0-1.0); MONOCYTES % (AUTO) 9 % (0-12); NEUTROPHILS # (AUTO) 3.9 X 10^3 (1.8-7.8); NEUTROPHILS % (AUTO) 71 % (42-75); PLATELET COUNT 231 10^3/uL (130-400); RED CELL DISTRIBUTION WIDTH 14.6 % (10.0-14.5); WHITE BLOOD COUNT 5.4 10^3/uL (4.3-11.0)
[2018-11-27 14:37] LABS: ALANINE AMINOTRANSFERASE 13 U/L (0-55); ALBUMIN 3.5 GM/DL (3.2-4.5); ALKALINE PHOSPHATASE 73 U/L (40-136); BILIRUBIN,TOTAL 0.4 MG/DL (0.1-1.0); BUN/CREATININE RATIO 13; CALCIUM 9.3 MG/DL (8.5-10.1); CARBON DIOXIDE 26 MMOL/L (21-32); CHLORIDE 106 MMOL/L (98-107); GFR ESTIMATED > 60; GLUCOSE 108 MG/DL (70-105); POTASSIUM 3.8 MMOL/L (3.6-5.0); SODIUM 137 MMOL/L (135-145); TOTAL PROTEIN 6.3 GM/DL (6.4-8.2)
--- NOTE | 2018-11-27 14:43 | Diagnostic Imaging Report ---
PROCEDURE: CT neck soft tissue without contrast. TECHNIQUE: Multiple contiguous axial images were obtained through the neck without the use of intravenous contrast. Auto Exposure Controls were utilized during the CT exam to meet ALARA standards for radiation dose reduction. INDICATION: Suicidal ideation. Evaluate neck for possible hanging injury. COMPARISON: None. FINDINGS: The aerodigestive tract is patent without evidence of focal stenosis. No masses or fluid collections are seen in the neck. No evidence of hematoma. The nasopharyngeal, oropharyngeal, hypopharyngeal, and laryngeal structures are symmetric and unremarkable. No evidence of hematoma within the neck. The parotid, submandibular, and thyroid glands have a normal noncontrast CT appearance. Vascular structures are not well evaluated on this noncontrast CT. Included osseous structures demonstrate no acute fracture or dislocation. Sternal wires are noted. The lung apices are clear. Included intracranial views demonstrate no acute abnormality. IMPRESSION: No acute abnormalities in the neck. No fluid collection, hematoma, or mass. Dictated by: Dictated on workstation # [id number]
--- NOTE | 2018-11-27 15:05 | Diagnostic Imaging Report ---
INDICATION: Attempted suicide. Left shoulder injury. TIME OF EXAM: 2:39 PM TECHNIQUE: 3 views of the left shoulder were obtained. FINDINGS: Glenohumeral and acromioclavicular alignment are normal. Acromiohumeral space is normal. No fracture or dislocation is seen. IMPRESSION: No acute bony abnormality is detected. Dictated by: Dictated on workstation # [id number]
--- NOTE | 2018-11-27 15:06 | Diagnostic Imaging Report ---
INDICATION: Left hand injury. TIME OF EXAM: 2:45 PM TECHNIQUE: 3 views of the left hand were obtained. FINDINGS: The distal radius and ulna are intact. The carpus is intact. The metacarpals are unremarkable. The phalanges appear intact. No fractures are seen. IMPRESSION: No acute bony abnormality is detected. Dictated by: Dictated on workstation # [id number]
--- NOTE | 2018-11-27 15:07 | Diagnostic Imaging Report ---
INDICATION: Left rib injury. TIME OF EXAM: 2:35 PM FINDINGS: Multiple views of the left ribs were obtained. No definite displaced rib fracture is seen. No parenchymal contusion, effusion or pneumothorax is identified. Changes of median sternotomy are noted. IMPRESSION: No displaced rib fracture is detected. Dictated by: Dictated on workstation # [id number]
--- NOTE | 2018-11-27 15:15 | NUR ---
PT MOTHER AT BEDSIDE.
--- NOTE | 2018-11-27 15:33 | NUR ---
PT FATHER AT BEDSIDE
--- NOTE | 2018-11-27 15:37 | NUR ---
[facility] HERE TO SEE PT AT THIS TIME.
[2018-11-27] MEDS ORDERED: IBUPROFEN 600 MG (MOTRIN) TAB PO ONE (15:45)
--- NOTE | 2018-11-27 16:00 | NUR ---
PT STORMS OUT OF HER ROOM RIGHT AFTER [facility] EXITS ROOM REQUESTING A FACE SHEET. PT REFUSES TO STOP AND LEAVES WITH HER PARENTS. PT REPORTS SHE JUST FOUND OUT HER DAUGHTER IS MISSING FROM SCHOOL AND IS GOING TO GO LOOK FOR HER. [facility] REPORTS THEY WILL PASS PT INFO ONTO WEEKEND ONCALL PERSON TO HAVE THEM GET IN CONTACT WITH PT. PD NOTIFIED WELL OF PT LEAVING AMA.
== END 2018-11-27 16:00 | disposition left against medical advice (07) ==
LOC: EDUNIT# 13:25 → ER 13:26
DX: T14.91XA Suicide attempt, initial encounter (principal); I10 Essential (primary) hypertension; F41.9 Anxiety disorder, unspecified; Z77.22 Contact with and (suspected) exposure to environmental tobacco smoke (acute) (chronic)
CPT/HCPCS: 36415; 70490; 71100; 73030; 73130; 80053; 85025

== ENCOUNTER 2019-01-18 11:11 | Emergency (ER) | payer SELFPAY ==
[~2019-01-18] VITALS: Ht 175 cm; Wt 52.2 kg
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
[2019-01-18 12:00] LABS: BILIRUBIN,URINE NEGATIVE (NEGATIVE); CLARITY,URINE SLIGHTLY CLOUDY; COLOR,URINE YELLOW; GLUCOSE, URINE (UA) NEGATIVE (NEGATIVE); KETONES,URINE NEGATIVE (NEGATIVE); LEUKOCYTE ESTERASE ,URINE 1+ (NEGATIVE); NITRITE,URINE NEGATIVE (NEGATIVE); PH,URINE 8 (5-9); PROTEIN,URINE NEGATIVE (NEGATIVE)
[2019-01-18 12:02] LABS: BACTERIA,URINE NEGATIVE /HPF; WBC,URINE RARE /HPF
[2019-01-18 12:11] LABS: AMPHETAMINE SCREEN, URINE NEGATIVE (NEGATIVE); BARBITURATE SCREEN URINE NEGATIVE (NEGATIVE); BENZODIAZEPINES SCREEN URINE NEGATIVE (NEGATIVE); CANNABINOID SCREEN, URINE POSITIVE (NEGATIVE); COCAINE SCREEN URINE NEGATIVE (NEGATIVE); METHADONE STAT NEGATIVE (NEGATIVE); METHAMPHETAMINE SCREEN URINE S POSITIVE (NEGATIVE); OPIATE SCREEN URINE NEGATIVE (NEGATIVE); OXYCODONE STAT NEGATIVE (NEGATIVE); PROPOXYPHENE STAT NEGATIVE (NEGATIVE); TRICYCLIC ANTIDEPRESSANTS SCRE NEGATIVE (NEGATIVE)
[2019-01-18 12:17] LABS: HEMOGLOBIN 13.8 G/DL (11.5-16.0); MEAN PLATELET VOLUME 9.9 FL (7.4-10.4); RED CELL DISTRIBUTION WIDTH 13.7 % (10.0-14.5); WHITE BLOOD COUNT 8.1 10^3/uL (4.3-11.0)
[2019-01-18] MEDS ORDERED: NS IV 1000 ML 1,000 ML IV SCH (12:17)
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
[2019-01-18] MEDS ORDERED: fentaNYL INJECTION 100 MCG/2 ML AMP IVP ONE (12:30)
[2019-01-18 12:33] LABS: PROTHROMBIN TIME PATIENT 13.2 SEC (12.2-14.7)
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
[2019-01-18 12:42] LABS: ALANINE AMINOTRANSFERASE 12 U/L (0-55); ALBUMIN 4.2 GM/DL (3.2-4.5); ALKALINE PHOSPHATASE 70 U/L (40-136); AMYLASE 92 U/L (25-125); BILIRUBIN,DIRECT 0.3 MG/DL (0.0-0.3); BILIRUBIN,INDIRECT 0.4 MG/DL; BILIRUBIN,TOTAL 0.7 MG/DL (0.1-1.0); LIPASE 37 U/L (8-78); TOTAL PROTEIN 7.3 GM/DL (6.4-8.2)
[2019-01-18 13:06] LABS: HEMATOCRIT 42 % (35-52); HEMOGLOBIN 13.8 G/DL (11.5-16.0); MEAN CORPUSCULAR HEMOGLOBIN 30 PG (25-34); MEAN CORPUSCULAR HGB CONC 33 G/DL (32-36); MEAN CORPUSCULAR VOLUME 91 FL (80-99); MEAN PLATELET VOLUME 9.9 FL (7.4-10.4); PLATELET COUNT 338 10^3/uL (130-400); RED CELL DISTRIBUTION WIDTH 13.7 % (10.0-14.5); WHITE BLOOD COUNT 8.1 10^3/uL (4.3-11.0)
[2019-01-18 13:07] LABS: ALKALINE PHOSPHATASE 70 U/L (40-136); BILIRUBIN,TOTAL 0.7 MG/DL (0.1-1.0)
[2019-01-18 13:08] LABS: ALBUMIN 4.2 GM/DL (3.2-4.5); TOTAL PROTEIN 7.3 GM/DL (6.4-8.2)
[2019-01-18 13:09] LABS: BASOPHILS # (AUTO) 0.1 10^3/uL (0.0-0.1); BASOPHILS % (AUTO) 1 % (0-10); EOSINOPHILS # (AUTO) 0.2 10^3/uL (0.0-0.3); EOSINOPHILS % (AUTO) 2 % (0-10); LYMPHOCYTES # (AUTO) 1.1 X 10^3 (1.0-4.0); LYMPHOCYTES % (AUTO) 13 % (12-44); MONOCYTES # (AUTO) 0.6 X 10^3 (0.0-1.0); MONOCYTES % (AUTO) 7 % (0-12); NEUTROPHILS # (AUTO) 6.2 X 10^3 (1.8-7.8); NEUTROPHILS % (AUTO) 77 % (42-75)
[2019-01-18 13:22] LABS: BUN/CREATININE RATIO 14; CALCIUM 9.8 MG/DL (8.5-10.1); CARBON DIOXIDE 24 MMOL/L (21-32); CHLORIDE 105 MMOL/L (98-107); GFR ESTIMATED > 60; GLUCOSE 81 MG/DL (70-105); POTASSIUM 3.6 MMOL/L (3.6-5.0); SODIUM 140 MMOL/L (135-145)
[2019-01-18] MEDS ORDERED: TETANUS,DIPTH,PERTUSS P/F (BOOSTRIX) 0.5 ML VIAL IM ONE (13:30)
[2019-01-18 13:47] LABS: ALANINE AMINOTRANSFERASE 12 U/L (0-55)
[2019-01-18] MEDS ORDERED: TRAM50TA2 PO (14:09)
[2019-01-18] MEDS ORDERED: METO-333 PO (14:27)
[2019-01-18 14:37] VITALS: BP 170/125
== END 2019-01-18 14:39 | disposition home or self-care (01) ==
LOC: EDUNIT# 11:11 → ER 11:12
DX: S09.90XA Unspecified injury of head, initial encounter (principal); S22.32XA Fracture of one rib, left side, initial encounter for closed fracture; I10 Essential (primary) hypertension; F12.10 Cannabis abuse, uncomplicated; F15.10 Other stimulant abuse, uncomplicated; F32.9 Major depressive disorder, single episode, unspecified; R40.2142 Coma scale, eyes open, spontaneous, at arrival to emergency department; R40.2252 Coma scale, best verbal response, oriented, at arrival to emergency department; R40.2362 Coma scale, best motor response, obeys commands, at arrival to emergency department; F17.210 Nicotine dependence, cigarettes, uncomplicated; Z95.2 Presence of prosthetic heart valve; Z88.1 Allergy status to other antibiotic agents; Z88.8 Allergy status to other drugs, medicaments and biological substances
CPT/HCPCS: 36415; 70450; 71250; 72125; 80053; 80076; 80306; 80320; 81000; 82150; 82248; 83690; 84703; 85025; 85027; 85610; 85730; 90471; 90715; 93005; 93041; 96361; 96374

== ENCOUNTER 2019-02-03 05:16 | Emergency (ER) | payer SELFPAY ==
[~2019-02-03] VITALS: Ht 175 cm; Wt 52.2 kg
[~2019-02-03 05:16] MED LIST changes: +METO-333 PO; +TRAM50TA2 PO
[2019-02-03] MEDS ORDERED: RIVA10TA PO (05:28)
[2019-02-03 05:30] LABS: BASOPHILS # (AUTO) 0.1 10^3/uL (0.0-0.1); BASOPHILS % (AUTO) 1 % (0-10); EOSINOPHILS # (AUTO) 0.3 10^3/uL (0.0-0.3); EOSINOPHILS % (AUTO) 4 % (0-10); HEMATOCRIT 42 % (35-52); HEMOGLOBIN 13.4 G/DL (11.5-16.0); LYMPHOCYTES # (AUTO) 1.9 X 10^3 (1.0-4.0); LYMPHOCYTES % (AUTO) 27 % (12-44); MEAN CORPUSCULAR HEMOGLOBIN 30 PG (25-34); MEAN CORPUSCULAR HGB CONC 32 G/DL (32-36); MEAN CORPUSCULAR VOLUME 92 FL (80-99); MEAN PLATELET VOLUME 9.2 FL (7.4-10.4); MONOCYTES # (AUTO) 0.7 X 10^3 (0.0-1.0); MONOCYTES % (AUTO) 10 % (0-12); NEUTROPHILS % (AUTO) 58 % (42-75); PLATELET COUNT 298 10^3/uL (130-400); RED CELL DISTRIBUTION WIDTH 13.7 % (10.0-14.5)
[2019-02-03] MEDS ORDERED: ASPIRIN 81 MG CHEW (CHILDREN'S ASA) PO ONE (05:30)
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
[2019-02-03] MEDS: NITROGLYCERIN 0.4 MG SL TABS BTL 25'S SL PRN ×3 (05:37→05:47)
[2019-02-03 05:39] LABS: INR 0.9 (0.8-1.4); PROTHROMBIN TIME PATIENT 11.9 SEC (12.2-14.7)
[2019-02-03 05:50] LABS: ALANINE AMINOTRANSFERASE 11 U/L (0-55); ALKALINE PHOSPHATASE 67 U/L (40-136); AMYLASE 85 U/L (25-125); BILIRUBIN,TOTAL 0.4 MG/DL (0.1-1.0); BUN/CREATININE RATIO 17; CALCIUM 9.9 MG/DL (8.5-10.1); CARBON DIOXIDE 26 MMOL/L (21-32); CHLORIDE 104 MMOL/L (98-107); CREATINE KINASE 43 U/L (29-168); CREATINE KINASE MB 0.7 NG/ML (<6.6); CREATININE SERUM 0.82 MG/DL (0.60-1.30); GFR ESTIMATED > 60; GLUCOSE 90 MG/DL (70-105); LIPASE 24 U/L (8-78); MAGNESIUM 1.9 MG/DL (1.6-2.4); POTASSIUM 3.7 MMOL/L (3.6-5.0); SODIUM 139 MMOL/L (135-145)
[2019-02-03] MEDS ORDERED: KETOROLAC 30 MG/ML VIAL IVP ONE (06:00)
--- NOTE | 2019-02-03 06:11 | NUR ---
pt reports dropping urine specimen in toilet.
[2019-02-03] MEDS ORDERED: NS 100 ML (IVPB) BAG IV ONE (06:15)
[2019-02-03] MEDS ORDERED: HOLD METFORMIN - RECEIVED CONTRAST 20 ML VIAL IV SCH (06:15)
[2019-02-03] MEDS ORDERED: IOHEXOL 350 MG/ML 100 ML (OMNIPAQUE 350) VIAL IV ONE (06:15)
--- NOTE | 2019-02-03 06:36 | Diagnostic Imaging Report ---
Clinical indication: Patient with left-sided chest pain radiating to left arm. Exam: Portable chest x-ray upright view. Comparisons: Chest x-ray dated 10/29/2018. Findings: Lungs/pleura: Lungs are clear. There is no pneumothorax. There is no pleural effusion. Mediastinum: Unremarkable. Pulmonary vasculature: Unremarkable. Heart: Unremarkable heart size is within normal limits. There are postoperative changes to the chest with sternotomy wires. Bones/extrathoracic soft tissue: Unremarkable. Impression: There is no radiographic evidence of acute cardiopulmonary process. Dictated by: Dictated on workstation # [id number]
--- NOTE | 2019-02-03 06:57 | NUR ---
REPORT FROM RACHID
[2019-02-03 08:18] VITALS: BP 154/98
--- NOTE | 2019-02-03 08:21 | Diagnostic Imaging Report ---
CLINICAL INDICATION: Patient with aortic valve replacement due to a form of aortic stenosis. Patient had surgery three years ago. Patient has pain in the left side that radiates to left arm. The patient has not been taking anticoagulant medication. EXAM: CT angiogram of the chest performed with 80 cc Omnipaque 350 IV contrast. Coronal and oblique MIP images of the vasculature were created to better evaluate anatomy. Auto Exposure Controls were utilized during the CT exam to meet ALARA standards for radiation dose reduction. COMPARISON: CT scan of the chest without contrast dated 01/18/2019. FINDINGS: There is some streak and motion artifact which limits evaluation of the pulmonary arteries, mainly on the upper lung field regions. There is no evidence of pulmonary embolism. Aortic mechanical valve replacement is again seen. There is stable dilation of the ascending thoracic aorta measuring 4.1 cm in greatest axial dimension. Stable mild peripheral subpleural linear and amorphous opacities involving the anterior aspects of both lungs and posterior lower lobe regions (left side more than the right), which likely represents atelectasis or scarring. The remainder of the lungs are clear. There is no pleural effusion or pneumothorax. There is no mediastinal or axillary lymphadenopathy. Mediastinal structures and heart shows no significant abnormality. Sternotomy wires are seen. The visualized portions of the upper abdominal structures are unremarkable. Bone show no significant acute process. IMPRESSION: 1: There is no evidence of pulmonary embolism, as visualized. 2: There are stable postop changes of the chest with aortic mechanical valve replacement. There is a stable ascending thoracic aortic aneurysm which may be related to history of aortic valve stenosis. 3: Mild atelectasis and/or scarring involving the periphery of both lungs. Dictated by: Dictated on workstation # [id number]
== END 2019-02-03 08:18 | disposition home or self-care (01) ==
LOC: EDUNIT# 05:17 → ER 05:18
DX: R07.89 Other chest pain (principal); G89.29 Other chronic pain; I10 Essential (primary) hypertension; F41.9 Anxiety disorder, unspecified; F32.9 Major depressive disorder, single episode, unspecified; F17.210 Nicotine dependence, cigarettes, uncomplicated; Z95.4 Presence of other heart-valve replacement; Z79.82 Long term (current) use of aspirin; Z79.01 Long term (current) use of anticoagulants; Z88.1 Allergy status to other antibiotic agents; Z88.8 Allergy status to other drugs, medicaments and biological substances
CPT/HCPCS: 36415; 71045; 71275; 80053; 80320; 82150; 82550; 82553; 83690; 83735; 83874; 83880; 84484; 84703; 85025; 85610; 85730; 93005; 93041